=== PATIENT | male | born 1950 | race Caucasian/White ===

== ENCOUNTER → 2018-01-13 09:42 | Outpatient (CLI) | payer MEDICARE | END | disposition home or self-care (01) | LOC: D.RT 09:42 | DX: F17.210 Nicotine dependence, cigarettes, uncomplicated (principal) ==

== ENCOUNTER 2018-02-24 10:54 | Outpatient (CLI) | payer MEDICARE ==
[~2018-02-24] VITALS: Ht 175.3 cm; Wt 77.3 kg
--- NOTE | ~2018-02-24 | HEMODYNAMI ---
PATIENT:LATASHA SÁNCHEZ MEDICAL RECORD: [id number] : 50 LOCATION:D.CAT ADMISSION DATE: 02/24/18 Generatedon:02/24/201813:17 Patient name: LATASHA SÁNCHEZ Patient #: [id number] SSN: : 1950 Date of study: 02/24/2018 Page: Of Hemodynamic Procedure Report Patient Data Patient Demographics Procedure consent was obtained First Name: LATASHA Gender: Male Last Name: PRINCESS : 1950 [facility] Initial: JEANA Age: 67 year(s) Patient #: [id number] Race: Unknown Additional ID: [id number] Contact details [address]: [address] [place] [address] State: [place] City: [place] Zip code: [address] Past Medical History Allergies Allergen Reaction Date Comments Reported Sulfa drugs 02/24/2018 Admission Admission Data Admission Date: 02/24/2018 Admission Time: 10:54 Procedure Procedure Types Cath Procedure Diagnostic Procedure LHC LHC w/Coronaries Sedation Charges Moderate Sedation up to 15 minutes Procedure Description Procedure Date Procedure Date: 02/24/2018 Procedure Start Time: 12:53 Procedure End Time: 13:15 Procedure Staff Name Function Andrés Cloud MD Performing Physician Krystyna Upton RT Monitor Marleni Palacios RN Nurse Sav Garvin RT Scrub Procedure Data Cath Procedure Fluoroscopy Diagnostic fluoroscopy Total fluoroscopy Time: 3.6 time: 3.6 min min Diagnostic fluoroscopy Total fluoroscopy dose: 601 dose: 601 mGy mGy Contrast Material Contrast Material Type Amount (ml) Isovue 300 100 Entry Location Entry Primary Successful Side Size Upsize Upsize Entry Closure Succes sful Closure Location (Fr) 1 (Fr) 2 (Fr) Remarks Device Remarks Femoral Right 5 Fr Exoseal artery Estimated blood loss: 5 ml Diagnostic catheters Device Type Used For End Catheter Placement MULTIPACK JL 4.0 5Fr Left Coronary catheter Angiography MULTIPACK 3DRC 5Fr Right Coronary catheter Angiography MULTIPACK Pigtail 5 Fr LV Angiography catheter DIAGNOSTIC IM 5Fr Internal mammary catheter ([id number]) arteriography Procedure Complications No complications Procedure Medications Medication Administration Route Dosage Oxygen etCO2 Nasal cannula 2 l/min Lidocaine 2% added to field 20 Heparin Flush Bag added to field 2 bags (1000units/500ml NS) Versed I.V. 2 mg Fentanyl I.V. 100 mcg Versed I.V. 2 mg Fentanyl I.V. 100 mcg Versed I.V. 1 mg Fentanyl I.V. 50 mcg Versed I.V. 1 mg Fentanyl I.V. 50 mcg Hemodynamics Rest Heart Rate: 56 (bpm) Pressure Samples Time Site Value (mmHg) Purpose Heart Use Rate(bpm) 13:05 LV 141/8,19 EDP 64 13:05 AO 145/68(98) Pullback 65 13:05 LV 140/1,18 Pullback 65 Gradients Valve Time Site 1 Site 2 Mean SEP/DFP Peak To Heart Use (mmHg) (sec/min) Peak Rate (mmHg) (bpm) Aortic 13:05 LV AO 0 13 0 65 140/1,18 145/68(98) Calculations Valve P-P Mean Valve Index Valve Source Name Gradient Area Flow (cm2) Aortic 0 0 0 0 Snapshots Pre Cath Intra NCS Post Cath Vital Signs Time Heart Resp SPO2 etCO2 NIBP (mmHg) Rhythm Pain Sedation Rate (ipm) (%) (mmHg) Status Level (bpm) 12:46:33 57 13 99 36.1 127/77(97) NSR 0 (11) 10(A) , No pain 12:51:09 55 19 98 21.8 125/72(105) NSR 0 (11) 10(A) , No pain 12:55:42 55 16 95 0 118/81(96) NSR 0 (11) 9(A) , No pain 13:00:55 67 15 99 39.1 151/85(127) NSR 0 (11) 9(A) , No pain 13:05:35 68 24 95 22.6 142/74(104) NSR 0 (11) 9(A) , No pain 13:10:14 68 18 99 36.8 155/81(136) NSR 0 (11) 9(A) , No pain 13:14:55 60 14 98 36.1 145/76(112) NSR 0 (11) 10(A) , No pain Medications Time Medication Route Dose Verified Delivered Reason Notes Eff ectiveness by by 12:40:58 Oxygen etCO2 2 Andrés Buffie used for Nasal l/min ePdro Luis aPlacios RN procedure cannula 12:41:21 Lidocaine 2% added 20ml Andrés Andrés for local to vial Pedro Luis Cloud MD anesthetic field 12:41:27 Heparin Flush added 2 Andrés Andrés used for Bag to bags Pedro Luis Cloud MD procedure (1000units/500ml field NS) 12:49:45 Versed I.V. 2 mg Andrés Buffie for Pedor Luis Palacios RN sedation 12:49:50 Fentanyl I.V. 100 Andrés Buffie for mcg Pedro Luis Palacios RN sedation 12:54:11 Versed I.V. 2 mg Andrés Buffie for Pedro Luis Palacios RN sedation 12:54:14 Fentanyl I.V. 100 Andrés Buffie for mcg Pedro Luis Palacios RN sedation 13:02:12 Versed I.V. 1 mg Andrés Buffie for Pedro Luis Palacios RN sedation 13:02:17 Fentanyl I.V. 50 Andrés Buffie for mcg Pedro Luis Palacios RN sedation 13:08:07 Versed I.V. 1 mg Andrés Buffie for Pedro Luis Palacios RN sedation 13:08:11 Fentanyl I.V. 50 Andrés Buffie for mcg Pedro Luis Palacios RN sedation Procedure Log Time Note 12:19:48 Time tracking: Regular hours (M-F 7:00 - 5:00) 12:19:51 Plan of Care:Hemodynamics will remain stable., Cardiac rhythm will remain stable., Comfort level will be maintained., Respiratory function will remain adequate., Patient/ family verbilizes understanding of procedure., Procedure tolerated without complication., Recovers from procedure without complications.. 12:22:14 Marleni Palacios RN sent for patient. Start room use. 12:33:00 Patient received from Pre/Post Procedure Room to CCL 1 Alert and oriented. Tansferred to table in Supine position. 12:33:01 Warm blankets applied, and marcy hugger turned on for patient comfort. 12:33:02 Correct patient and procedure confirmed by team. 12:33:04 Signed procedure consent form obtained from patient. 12:33:04 ECG and BP/O2 sat monitors applied to patient. 12:33:05 Full Disclosure recording started 12:40:58 Oxygen 2 l/min etCO2 Nasal cannula was administered by Marleni Palacios RN; used for procedure; 12:41:21 Lidocaine 2% 20ml vial added to field was administered by Andrés Cloud MD; for local anesthetic; 12:41:27 Heparin Flush Bag (1000units/500ml NS) 2 bags added to field was administered by Andrés Cloud MD; used for procedure; 12:45:41 Vital chart was started 12:45:45 Rhythm: sinus rhythm 12:46:01 H&P Date Dictated: 01/26/2018 Within 30 days and on chart., H&P Addendum completed by physician on day of procedure. (MUST COMPLETE FOR ALL OUTPATIENTS). 12:46:02 Pre-procedure instructions explained to patient. 12:46:03 Pre-op teaching completed and patient verbalized understanding. 12:46:05 Family in patients room. 12:46:07 Patient NPO since Midnight. 12:46:14 Patient allergic to Sulfa drugs 12:46:16 Is the patient allergic to Iodine/contrast media? No. 12:46:18 Is patient on blood thinner?No 12:46:19 Patient diabetic? No. 12:46:22 Previous problem with sedation/anesthesia? No ? 12:46:23 Snore? Yes 12:46:24 Sleep apnea? No 12:46:26 Deviated septum? No 12:46:27 Opens mouth fully? Yes 12:46:28 Sticks out tongue? Yes 12:46:32 Airway obstruction? Yes Asthma 12:46:35 Dentures? No ? 12:46:38 Pre procedure: right dorsailis pedis pulse 2+ Normal; easily identifiable; not easily obliterated 12:46:40 Modified Sanjiv's test Ulnar > 7 seconds. 12:46:42 Patient pain scale 0/10 ?. 12:46:43 FAILED SANJIV'S 12:47:13 IV patent on arrival in left forearm with 0.9% NaCl at [facility]. 12:47:16 Lab results completed and on chart. 12:47:19 Right groin area was prepped with chlora-prep and draped in sterile fashion 12:47:20 Alarms reviewed by R. N. 12:47:20 Sharps counted by scrub and verified by R.N. 12:47:23 Use device set Femoral Dx 12:47:24 ACIST Syringe (69782) opened to sterile field. 12:47:25 Bag Decanter (2001S) opened to sterile field. 12:47:25 Medline Cath Pack ([id number]) opened to sterile field. 12:47:26 DIAGNOSTIC WIRE .035 260cm J wire (227014) opened to sterile field. 12:47:27 ACIST Hand Control (17549) opened to sterile field. 12:47:27 ACIST Manifold (03237) opened to sterile field. 12:47:28 DIAGNOSTIC Multipack 5Fr catheter set ([id number]) opened to sterile field. 12:47:28 Tegaderm 4 x 4 (1626W) opened to sterile field. 12:47:29 SHEATH Prelude 5Fr 0.035 ([id number]) opened to sterile field. 12:48:44 Final Timeout: patient, procedure, and site verified with staff and physician. All members of the team are in agreement. 12:48:49 Right groin site verified by team. 12:48:51 Physical assessment completed. ASA score P 2 - A patient with mild systemic disease as per Andrés Cloud MD. 12:48:54 Sedation plan: IV Moderate Sedation Medication:Versed, Fentanyl 12:49:28 Baseline sample Acquired. 12:49:45 Versed 2 mg I.V. was administered by Marleni Palacios RN; for sedation; 12:49:50 Fentanyl 100 mcg I.V. was administered by Marleni Palacios RN; for sedation; 12:53:48 Procedure started. 12:53:52 Local anesthetic to right femoral artery with Lidocaine 2% by Andrés Cloud MD.INITIAL ACCESS ONLY 12:54:11 Versed 2 mg I.V. was administered by Marleni Palacios RN; for sedation; 12:54:14 Fentanyl 100 mcg I.V. was administered by Marleni Palacios RN; for sedation; 12:55:28 A 5 Fr sheath was inserted into the Right Femoral artery 12:56:30 A MULTIPACK JL 4.0 5Fr catheter was advanced over the wire and used for Left Coronary Angiography. 13:00:40 Catheter removed. 13:01:03 A MULTIPACK 3DRC 5Fr catheter was advanced over the wire and used for Right Coronary Angiography. 13:02:12 Versed 1 mg I.V. was administered by Marleni Palacios RN; for sedation; 13:02:17 Fentanyl 50 mcg I.V. was administered by Marleni Palacios RN; for sedation; 13:04:01 Catheter removed. 13:04:10 A MULTIPACK Pigtail 5 Fr catheter was advanced over the wire and used for LV Angiography. 13:05:16 LV gram done using RAMOS 13:05:20 Injector settings: Ml/sec: 10, Volume: 20, 13:05:21 LV hemodynamics recorded. 13:05:28 EF : 55 % 13:05:52 Catheter removed. 13:07:29 A DIAGNOSTIC IM 5Fr catheter ([id number]) was advanced over the wire and used for Internal mammary arteriography. 13:08:07 Versed 1 mg I.V. was administered by Marleni Palacios RN; for sedation; 13:08:11 Fentanyl 50 mcg I.V. was administered by Marleni Palacios RN; for sedation; 13:09:44 Catheter removed. 13:11:58 Sheath removed intact; hemostasis achieved with Exoseal to the Right Femoral artery. 13:12:03 Procedure ended.(Physican Out) 13:12:36 Fluoroscopy time 03.60 minutes. 13:12:40 Fluoroscopy dose: 601 mGy 13:12:40 Flurop Dose total: 601 13:12:43 Contrast amount:Isovue 300 100ml. 13:12:45 Sharps counted by scrub and verified by R.N. 13:12:54 Insertion/operative site no bleeding no hematoma. 13:12:57 Post-op/insertion site Right Femoral artery dressed using a 4 x 4 and Tegaderm. 13:13:00 Post right femoral artery:stable, clean and dry 13:13:07 Post Procedure Pulses reassessed and unchanged 13:13:10 Post-procedure physical assessment completed. ASA score P 2 - A patient with mild systemic disease as per Andrés Cloud MD. 13:13:13 Post procedure rhythm: unchanged. 13:13:16 Estimated blood loss: 5 ml 13:13:18 Post procedure instruction explained to patient.Patient verbalizes understanding. 13:13:18 Patient needs reinforcement of post procedure teaching. 13:13:40 Procedure type changed to Cath procedure, Diagnostic procedure, LHC, LHC w/Coronaries, Sedation Charges, Moderate Sedation up to 15 minutes 13:13:45 Procedure Complication : No complications 13:13:47 See physician's report for complete and final results. 13:14:10 EXOSEAL 5Fr (EX500) opened to sterile field. 13:14:25 Procedure and supply charges have been captured, reviewed, submitted and are correct. 13:15:03 Vital chart was stopped 13:15:05 Report given to Pre/Post Procedure Room. 13:15:07 Patient transfered to Pre/Post Procedure Room with Stretcher. 13:15:15 Procedure ended. 13:15:15 Full Disclosure recording stopped 13:15:18 End room use (Document Last) Device Usage Item Name Manufacture Quantity Catalog Number Hospital Part Current M inimal Lot# / Charge Number Stock Stock Serial# Code ACIST Syringe Acist 1 87072 904077 930371 720859 2 0 (49112) [employer] Bag Decanter Microtek 1 691052 65852 672498 5 () Medical Inc. Medline Cath Cardinal 1 [id number] 984763 83396 751245 5 Pack Health ([id number]) DIAGNOSTIC WIRE St Luis 1 506417 465653 956744 577949 3 0 .035 260cm J wire (514817) ACIST Hand Acist 1 23184 948392 657346 060367 5 Control (25608) [employer] Inc ACIST Manifold Acist 1 18600 372385 509152 275834 5 (23303) [employer] Inc DIAGNOSTIC Cardinal 1 XK1933 378045 60453 028802 3 0 Multipack 5Fr Health catheter set (OJ4614) Tegaderm 4 x 4 3M 1 1626W 215626 820251 520496 5 (1626W) SHEATH Prelude Merit 1 [id number]-[id number]-75-035 461952 532587 819116 5 5Fr 0.035 Medical (JIP-2H-29-035) MULTIPACK JL Cardinal 1 087257 5 4.0 5Fr Health catheter MULTIPACK 3DRC Cardinal 1 964059 5 5Fr catheter Health MULTIPACK Cardinal 1 065096 5 Pigtail 5 Fr Health catheter DIAGNOSTIC IM Cardinal 1 [id number] 950626 659473 690883 5 5Fr catheter Health (854062Y) EXOSEAL 5Fr Cardinal 1 EX500 323762 316068 966228 1 0 (EX500) Health Signature Audit [place] Stage Time Signature Unsigned Intra-Procedure 02/24/2018 Krystyna 1:17:09 PM Counts RT(R) Signatures Monitor : Krystyna Signature : Counts RT Date : Time : [facility] [address] [place] [address]
[2018-02-24] MEDS ORDERED: PRINZIDE 20/12.1 TA1 PO (11:21)
[2018-02-24] MEDS ORDERED: CALAN120 MG (11:21)
[2018-02-24 11:31] VITALS: BP 134/77; Ht 175.3 cm; Wt 77.3 kg
[2018-02-24 11:46] LABS: BASOPHILS 0.4 % (0-2); EOSINOPHILS 2.6 % (0-7); HEMATOCRIT 44.7 % (42.0-54.0); HEMOGLOBIN 16.3 g/dL (13.5-17.5); IMMATURE GRANULOCYTES 0.3 % (0-5); LYMPHOCYTES 30.4 % (15-50); MCH 35.6 pg (26.0-34.0); MCHC 36.5 g/dL (31.0-37.0); MCV 97.6 fL (80.0-100.0); MEAN PLATELET VOLUME 9.8 fL (7.4-10.4); MONOCYTES 13.8 % (2-11); NEUTROPHILS 52.5 % (40-80); PLATELET COUNT 180 10x3/uL (130-400); RBC 4.58 10x6/uL (4.20-6.10); WBC 7.6 10x3/uL (4.8-10.8)
[2018-02-24 11:54] LABS: CALC OSMOLALITY 277 mosm/kg (275-300); CALCIUM 9.3 mg/dL (8.5-10.1); CARBON DIOXIDE 25.5 mmol/L (21.0-32.0); CHLORIDE - SERUM 102 mmol/L (98-107); CREATININE - SERUM 0.9 mg/dL (0.6-1.3); GLUCOSE 109 mg/dL (74-106); POTASSIUM - SERUM 4.2 mmol/L (3.5-5.1); SODIUM 138 mmol/L (136-145); UREA NITROGEN 15 mg/dL (7-18); eGFR NON AFRICAN AMERICAN 89 mL/min (90-120)
== END 2018-02-24 16:00 | disposition home or self-care (01) ==
LOC: D.CATH 10:54
PROVIDERS: Internal Medicine Cardiovascular Disease
DX: I25.110 Atherosclerotic heart disease of native coronary artery with unstable angina pectoris (principal); R94.39 Abnormal result of other cardiovascular function study

== ENCOUNTER 2018-05-31 11:00 | Inpatient (IN) | payer MEDICARE ==
[~2018-05-31] VITALS: Ht 175.3 cm; Wt 76.8 kg
[~2018-05-31 11:00] MED LIST: CALAN120 MG; PRINZIDE 20/12.1 TA1 PO
--- NOTE | 2018-05-31 12:57 | HP ---
PATIENT: LATASHA SÁNCHEZ MEDICAL RECORD: [id number] ACCOUNT: [id number] LOCATION:[facility] : 50 ADMISSION DATE: 06/03/18 PCP: SHREYAS HERRERA MD HISTORY AND PHYSICAL EXAMINATION LATASHA Malik (67yo, M) ID# [id number]. Date/Time05/05/2018 10:[id number] Dept.NP_[facility] ClinicProviderMONTANA MISTRY MDInsuranceMed Primary: [place] ([place]) Insurance # : [id number] PCP : SHREYAS HERRERA Referring Provider Name : SHREYAS HERRERA Employer Name : UNKNOWN Prescription: Watchwith - This member could not be found in the payer's files. Please verify coverage and all member demographic information. Chief Complaint Followup: Coronary arteriosclerosis cad, s/p dental work and stop ETOH? Patient's Care Team Primary Care Provider (): SHREYAS HERRERA: [address], [place] [address], , Referring Provider (): SHREYAS HERRERA: [address], [place] [address], , Patient's Pharmacies [place] [address] ([facility]): [address] [place] [phone], , Vitals BP:164/96 sitting L arm 05/05/2018 10:18 am 172/88 sitting R arm 05/05/2018 10:19 amBP Cuff Size:adult 05/05/2018 10:18 am adult 05/05/2018 10:19 amHR:64,reg 05/05/2018 10:20 amHt:5 ft 9 in 05/05/2018 10:11 amWt:164.8 lbs 05/05/2018 10:16 amNotes:no chest pain, arm pain, tightness. has had teeth removed, gums healed. 05/05/2018 10:21 amBMI:24.3 05/05/2018 10:16 amAllergies Reviewed Allergies SULFA (SULFONAMIDE ANTIBIOTICS)Medications Reviewed Medications diazePAM 5 mg tablet Take 1 tablet(s) as needed by oral route.[facility] 25 mg tablet Take 1 tablet(s) every day by oral route.02/26/18 [facility] 100 mg tablet Take 1 tablet(s) twice a day by oral route.02/26/18 [facility] 120 mg tablet Take 1 tablet(s) 3 times a day by oral route.02/26/18 [facility] Problems Coronary arteriosclerosis - Onset: 02/26/2018 Family History Reviewed Family History Father- Coronary arteriosclerosis ( age: 55)Mother- Malignant neoplastic diseaseSocial History Reviewed Social History Cardiology Family history of heart disease?: Y Smoking Status: Former smoker (Notes: quit december 2017) HISTORY AND PHYSICAL [id number] LATASHA SÁNCHEZ Smoker (1 PPD) High Cholesterol: Y High blood pressure: Y Exercise level: None Diabetes: N Alcohol intake: Heavy Occupation: retired Tobacco-years of use: 45 Surgical History Reviewed Surgical History Other - hernia repair Past Medical History Reviewed Past Medical History Alcoholism: Y Chest Pain: Y Circulation Problems: Y Coronary Artery Disease: Y Drug Abuse: Y - pot Heart Disease: Y Hyperlipidemia: Y Hypertension: Y Shortness of Breath: Y Documents for Discussion N/A Screening None recorded. HPI Coronary Artery Disease F/U Reported by patient. Severity: no chest discomfort with daily activities Context: non-smoker Associated Symptoms: no chest pain; no neck pain; no left arm pain; no dyspnea with exertion; no sweating; no nausea; no stress multivessel coronary disease, asymptomatic Office follow-up following dental extractions Continues to drink about 6 beers a day. Denies angina, as dyspnea with exertion. Does have multivessel disease ROS Additionally reports: no changes from previous review of systems ROS as noted in the HPI Physical Exam Patient is a 67-year-old male. Constitutional: General Appearance well nourished and developed and healthy-appearing. Level of Distress NAD. Ambulation ambulating normally. Cardiovascular: Apical Impulse not displaced or no thrill. Heart Auscultation no murmurs, rubs, or gallops and RRR. Arterial Pulses 2+ bilateral radial. Edema no edema or varicosities. Lungs: Repiratory Effort no dyspnea. Percussion no hyperresonance or dullness or flatness. Auscultation no wheezing, rhonchi, or rales / crackles and breathing sounds normal and good air movement. HISTORY AND PHYSICAL [id number] LATASHA SÁNCHEZ Abdomen: Bowl Sounds normal. Inspection and Palpation no tenderness, guarding, or masses and soft and non-distended. Liver non-tender and no hepatomegaly. Spleen non-tender and no splenomegaly. Ears, Nose, Throat: Hearing grossly normal hearing. Oropharynx: moist mucous membranes. Musculoskeletal System: Gait And Stance normal gait and stance. Digits and Nails normal nails and no cyanosis. Joints, Bones, and Muscles normal strength and movement of all extremities. Neurologic: Cranial Nerves grossly intact. Sensation grossly intact. Lymph Nodes: Lymph Nodes no cervical LAD or supraclavicular LAD. Eyes: Lids and Conjunctivae no discharge or pallor and non-injected. Pupils PERRLA. EOM EOMI. Sclerae non-icteric. Neck: Neck no masses, enlarged lymph nodes, or carotid bruits and supple and trachea midline. Thyroid no enlargement or nodules and non-tender. Skin: Inspection and Palpation no rash, lesions, ulcers, or jaundice. Assessment / Plan 1. Coronary arteriosclerosis I25.10: Atherosclerotic heart disease of [place] coronary artery without angina pectoris Patient Instructions discontinue alcohol for one week prior to surgery Discussion Notes we discussed the rationale for surgery with asymptomatic multivessel coronary artery disease. We discussed the alternatives, recovery, and benefits. Consent given. Plan after holidays Warning signs for immediate medical attention discussed Return to Office None recorded. MONTANA MISTRY MD at 1257 CC: [phone] DICTATION DATE: 05/05/18 1010 [employer] IN[employer]CTOR: GIOVANNA 05/31/18 1141 [address] [place] [id number] [place] [id number]
[2018-05-31 13:25] LABS: BASOPHILS 0.4 % (0-2); EOSINOPHILS 2.2 % (0-7); HEMOGLOBIN 15.4 g/dL (13.5-17.5); IMMATURE GRANULOCYTES 0.2 % (0-5); LYMPHOCYTES 41.4 % (15-50); MCH 34.9 pg (26.0-34.0); MCV 99.8 fL (80.0-100.0); MEAN PLATELET VOLUME 9.4 fL (7.4-10.4); MONOCYTES 13.9 % (2-11); NEUTROPHILS 41.9 % (40-80); PLATELET COUNT 163 10x3/uL (130-400); RBC 4.41 10x6/uL (4.20-6.10); RDW 12.4 % (11.5-14.5); WBC 5.4 10x3/uL (4.8-10.8)
[2018-05-31 13:27] LABS: APPEARANCE CLEAR (CLEAR); BILIRUBIN NEGATIVE (NEGATIVE); COLOR YELLOW (YELLOW); GLUCOSE NEGATIVE (NEGATIVE); KETONE NEGATIVE (NEGATIVE); NITRITE NEGATIVE (NEGATIVE); PROTEIN NEGATIVE (NEGATIVE); SPECIFIC GRAVITY 1.005 (1.005-1.020); UROBILINOGEN NORMAL (NORMAL)
[2018-05-31 13:38] LABS: APTT 32.1 SECONDS (22.8-39.4); INR 0.99 (0.85-1.17); PROTIME 12.6 SECONDS (11.6-15.0)
[2018-05-31 13:48] LABS: ALBUMIN 3.7 g/dL (3.4-5.0); ALKALINE PHOSPHATASE 86 U/L (46-116); ALT (SGPT) 57 U/L (10-68); BILIRUBIN - TOTAL 0.34 mg/dL (0.2-1.3); CALC OSMOLALITY 273 mosm/kg (275-300); CHLORIDE - SERUM 98 mmol/L (98-107); CHOLESTEROL, TOTAL 185 mg/dL (0-200); CREATININE - SERUM 0.8 mg/dL (0.6-1.3); GLUCOSE 93 mg/dL (74-106); PHOSPHOROUS 3.5 mg/dL (2.5-4.9); POTASSIUM - SERUM 3.9 mmol/L (3.5-5.1); PROTEIN - SERUM 7.1 g/dL (6.4-8.2); SODIUM 137 mmol/L (136-145); T4 THYROXIN - FREE 0.86 ng/dL (0.76-1.46); THYROID STIMULATING HORMONE 3.19 uIU/mL (0.36-3.74); UREA NITROGEN 12 mg/dL (7-18); URIC ACID 5.7 mg/dL (2.6-7.2); eGFR NON AFRICAN AMERICAN > 90 mL/min (90-120)
[2018-05-31] MEDS ORDERED: BAYER CHEWABLE81 MG PO (14:59)
[2018-05-31] MEDS ORDERED: IBUPROFEN400 MG PO (14:59)
[2018-05-31] MEDS ORDERED: VALIUM5 MG PO (15:01)
[2018-05-31] MEDS ORDERED: BACLOFEN10 MG PO (15:02)
[2018-05-31] MEDS ORDERED: METOPROLOL TART50 MG PO (15:03)
[2018-05-31] MEDS ORDERED: KENALOG IN ORABA5 GM TOPICAL (15:06)
[2018-06-03] VITALS (43 sets, daily range): BP systolic 92–164; BP diastolic 47–87; BMI 24.2; BMI 24.8
--- NOTE | 2018-06-03 14:20 | NUR ---
PT ARRIVED IN THE UNIT. PT HOOKED TO ICU MONITORS. PT SEDATED AND ON THE VENTILATOR. 8 ETT 23 MIDLINE LIP. SEE RT NOTES FOR VENT SETTINGS. RIGHT IJ CVL NOTED. DRESSING C/D/I. SEE IV FLOW SHEET FOR DETAILS. SEE ASSESSMENT FLOW SHEET FOR DETAILS. MIDLINE CHEST INCISION WITH A DRESSING C/D/I. SUBSTERNAL DRESSING C/D/I WITH A LEFT ANNITA DRAIN COMPRESSED WITH BLOODY DRAINGE. CT LABLED L AND R NOTED 20 TO SUCTION WITH NO AIR LEAK NOTED. BLOODY DRAINGE NOTED. DRESSING C/D/I. TPM WIRES NOTED. RIGHT A LINE NOTED WITH A GOOD WAVE FORM. WRIST PROTECTOR ON. CAP REFILL <3 SECONDS. RIGHT LEG HARVEST SITE NOTED. KOBAN WRAPPED FROM THIGH TO ANKLE. 2 TERRENCE DRAINS NOTED MID LEG COMPRESSED WITH BLOODY DRAINGE. DORALIS PEDIS PULSES DOPPLERABLE. FC NOTED WITH CLEAR, YELLOW URINE. PT NORMAL SINUS RHYTHM. VSS AT THIS TIME. CALL LIGHT IN REACH. [facility] PC.
--- NOTE | 2018-06-03 14:40 | NUR ---
DR MISTRY AT THE PTS BEDSIDE. PT BECOMING SLIGHT HTN. NITRO TITRATED PER ORDERS. DR MISTRY INSTRUCED TO GIVE IV MORPHINE. IT WAS GIVEN.
--- NOTE | 2018-06-03 14:45 | NUR ---
ASKED DR MISTRY IF HE WANTED THE PT TO BE ON AMIDORONE AND HE STATED NO. SEE ORDERS.
--- NOTE | 2018-06-03 15:00 | NUR ---
ABG OBTAINED PER RT. RT TURNED FIO2 TO 40%. PT STILL EXTREAMLY DROWSEY. PT DOES HOWEVER AROUSE TO VOICE. VSS AT THIS TIME. PT REMAINS NSR.
--- NOTE | 2018-06-03 15:54 | NUR ---
PT TEMP 96.7. ASKED THE PT IF HE WAS COLD AND HE SHOOK HIS HEAD YES. COVERED THE PT WITH BLANKES.
--- NOTE | 2018-06-03 15:55 | NUR ---
RT CHANGED VENT SETTINGS TO SIMV RATE OF 4. PT TOLEATING WELL.
--- NOTE | 2018-06-03 16:08 | NUR ---
PT 96.4 FC TEMP. BEAR HUGGER TURNED ON AND PLACED ON THE PT.
--- NOTE | 2018-06-03 16:20 | NUR ---
PT AWAKE AND FOLLOWING COMMANDS. RT CHANGED VENT TO CPAP MODE. PT TOLERATING WELL. VSS. WILL CONT PC.
--- NOTE | 2018-06-03 17:10 | NUR ---
ABG OBTAINED. RT DID NIFF AND VITAL COPACITY. -[address] MISTRY CALLED AND UPDATED ON THE PTS CONDITION. OK TO EXTUBATE AND AFTER PT IS EXTUBATED, GIVE 2.5 OF IV LOPRESSOR.
--- NOTE | 2018-06-03 17:15 | NUR ---
RT EXUBATED PER ORDERS. PT TOLERATED WELL. O2 PLACED ON THE PT AT 4L VIA NC. VSS AT THIS TIME. REMAINS IN NSR AT 90 BPM. WILL CONT POC.
--- NOTE | 2018-06-03 17:40 | NUR ---
PRN MORPHINE GIVEN. PT INSTRUCTED TO BREATH AND COUGH FREQUENTLY. PT TOLEATED WELL.
--- NOTE | 2018-06-03 17:48 | NUR ---
DR MISTRY AT THE PTS BEDSIDE.
--- NOTE | 2018-06-03 18:34 | NUR ---
INSTRUCTED THE PT TO USE HIS IS 10X'S/H. PT DEMOSTRATED THE CORRECT WAY TO USE USE IS. PULLED A LITTLE UNDER 1000.
--- NOTE | 2018-06-03 19:15 | NUR ---
REPORT REC'D AND CARE ASSUMED, REC'D PT SITTING UP IN BED, O2 @ 4LITERS VIA NC, AWAKE, ALERT, AND ORIENTED X 4, RIJ SWAN CAPPED, DRSG CDI TO SIDE PORTS, MANNIFOLD WITH PLASMALYTE @ 100CC/HR, NITROGLYCERIN @ 10CC/HR OR 33.33 MCG/MIN, AND INSULIN ON HOLD, 3 PRONG EXTENSION SET WITH BURETROL @ 5CC/HR AND ZINACEF @ 11.4CC/HR, MIDSTERNAL DRSG CDI, SUBSTERNAL DRSG CDI, MEDIASTINAL CT'S X 2 TO 20CM H2O SUCTION, LEFT SUBSTERNAL ANNITA DRAIN COMPRESSED WITH SANGUINOUS DRAINAGE NOTED, EXTERNAL P/M WIRES SECURED UNDER SUBSTERNAL DRSG, RIGHT RADIAL ENEDELIA WITH FLEXION BOARD IN USE, ENEDELIA LEVELED AND ZEROED WITH RETURN OF APPROPRIATE WAVEFORM, CRITICORE MAURICIO PATENT DRAINING CLEAR YELLOW URINE, RIGHT LEG HARVEST SITES, COBAN DRSG CDI, TERRENCE DRAINS X 2 TO RIGHT UPPER LEG COMPRESSED WITH SANGUINOUS DRAINAGE, PT COMPLAINS OF PAIN TO INCISION, RATING "6" ON 0-10 PAIN SCALE, SCD TO LEFT LEG, PPP, SR UP X 3, VISIBLE TO NURSES STATION.
--- NOTE | 2018-06-03 19:40 | NUR ---
ORAL RINSE WITH PERIDEX PROVIDED
--- NOTE | 2018-06-03 20:05 | NUR ---
SIGNIFICANT OTHER AT BS, UPDATE PROVIDED AND QUESTIONS ANSWERED, PERCOCET 5/325 1 TAB, GIVEN PO FOR CONTINUED COMPLAINTS OF PAIN, TITRATING NITROGLYCERIN FOR EFFECT.
--- NOTE | 2018-06-03 21:05 | NUR ---
EVENING MEDS GIVEN, PT REFUSED STOOL SOFTENERS, EXPLAINED TO PT WITH THE PAIN MEDICATION THEY WERE NECESSARY DUE TO DECREASED STOMACH MOTILITY, VERBALIZES UNDERSTANDING, STATES " I DO NOT WANT THEM, I DON'T NEED THEM", ATTEMPTED TO EXPLAIN AGAIN THE REASON FOR THEIR NEED, STATES " I WANT TO TRY AND SLEEP", STOOL SOFTENERS HELD AT THIS TIME.
--- NOTE | 2018-06-03 22:01 | NUR ---
PT COMPLAINS OF INCREASED INCISIONAL PAIN, WHEN ASKED ABOUT PERCOCET, STATES " IT HELPED A LITTLE BUT I AM STILL HURTING", 2MG MORPHINE GIVEN SLOW IVP FOR PAIN, BP STABLE, WEANING NITRO TOLERATED.
--- NOTE | 2018-06-03 23:25 | NUR ---
PT AWAKE, REPOSITIONED UP IN BED FOR COMFORT, REASSESSMENT COMPLETED, PT COMPLAINS OF PAIN RATING "8-9" ON 0-10 PAIN SCALE, STATES "THE LAST PAIN MED YOU GAVE ME WORKED BETTER I THINK", 2MG MORPHINE GIVEN, BP 148/75, O2 WEANED TO 2LITERS VIA NC, O2 SAT 99%, WILL MONITOR CLOSELY FOR CHANGES.
[2018-06-04] VITALS (58 sets, daily range): BP systolic 83–148; BP diastolic 54–85; Ht 175.3 cm; Wt 76.8 kg
--- NOTE | 2018-06-04 01:15 | NUR ---
PT AWAKE, ICE WATER PROVIDED, PT BELCHING AT THIS TIME, DENIES NAUSEA, HAVING DIFFICULTY GETTING COMFORTABLE, ASSISTED TO REPOSITION FOR COMFORT, BP TRENDING UPWARD, WILL MONITOR CLOSELY FOR CHANGES. .
--- NOTE | 2018-06-04 01:51 | NUR ---
PT COMPLAINS OF CHEST DISCOMFORT WITH COUGHING, PERCOCET 10MG GIVEN PO FOR PAIN, PT DENIES NAUSEA OR FURTHER NEEDS. TITRATING NITROGLYCERIN FOR EFFECT, VISIBLE TO NURSES STATION.
--- NOTE | 2018-06-04 03:30 | NUR ---
REASSESSSMENT COMPLETED, NO CHANGES FROM PREVIOUS ASSESSMENT, PT DOZING AT INTERVALS, DRSGS REMAIN CDI, RIGHT RADIAL ENEDELIA POSITIONAL AT TIMES, CM-SR TO ST, ANNITA DRAIN AND TERRENCE'S EMPTIED USING STERILE TECHNIQUE, CRITICORE MAURICIO PATENT DRAINING YELLOW URINE, PT MAEE, ICE WATER PROVIDED ON REQUEST, WILL CONT TO MONITOR CLOSELY FOR CHANGES.
--- NOTE | 2018-06-04 04:35 | NUR ---
PT COMPLAINS OF INCISIONAL DISCOMFORT, RATING "8" ON 0-10 PAIN SCALE, 2MG MORPHINE GIVEN SLOW IVP, BP ELEVATED, CONTINUING TO TITRATE NITROGLYCERIN FOR EFFECT.
--- NOTE | 2018-06-04 05:15 | NUR ---
PT DANGLED AT BS, TOLERATED WELL, NITROGLYCERIN TITRATED FOR EFFECT, DENIES NEEDS, ASSISTED TO REPOSITION FOR COMFORT AFTER 1O MINUTES.
--- NOTE | 2018-06-04 06:10 | NUR ---
AM LAB DRAWN FROM CV[facility] AND SENT TO LAB
[2018-06-04 06:27] LABS: HEMATOCRIT 33.4 % (42.0-54.0); HEMOGLOBIN 11.2 g/dL (13.5-17.5); MCH 34.1 pg (26.0-34.0); MCHC 33.5 g/dL (31.0-37.0); MCV 101.8 fL (80.0-100.0); MEAN PLATELET VOLUME 9.7 fL (7.4-10.4); RBC 3.28 10x6/uL (4.20-6.10); WBC 8.2 10x3/uL (4.8-10.8)
--- NOTE | 2018-06-04 06:30 | NUR ---
PT ASSISTED X 2 UP TO CHAIR AT BS, RT AT BS FOR BREATHING TX, PT TOLERATED WELL, BP ELEVATED PER ENEDELIA BUT WITHIN NORMAL RANGE PER BP CUFF, WARM BLANKET PROVIDED, LINENS CHANGED ON BED, CALL LIGHT AND BEDSIDE TABLE WITHIN REACH.
[2018-06-04 07:20] LABS: ALBUMIN 2.7 g/dL (3.4-5.0); ALKALINE PHOSPHATASE 40 U/L (46-116); ALT (SGPT) 31 U/L (10-68); BILIRUBIN - TOTAL 0.25 mg/dL (0.2-1.3); CALC OSMOLALITY 283 mosm/kg (275-300); CALCIUM 7.3 mg/dL (8.5-10.1); CARBON DIOXIDE 25.8 mmol/L (21.0-32.0); CHLORIDE - SERUM 106 mmol/L (98-107); CREATININE - SERUM 0.9 mg/dL (0.6-1.3); POTASSIUM - SERUM 4.2 mmol/L (3.5-5.1); PROTEIN - SERUM 5.1 g/dL (6.4-8.2); SODIUM 141 mmol/L (136-145); UREA NITROGEN 12 mg/dL (7-18); eGFR NON AFRICAN AMERICAN 89 mL/min (90-120)
[2018-06-04 07:29] LABS: GLUCOSE 148 mg/dL (74-106)
--- NOTE | 2018-06-04 10:58 | NUR ---
CALLED PHARMACY FOR AZRA
--- NOTE | 2018-06-04 12:17 | NUR ---
0700 PT RECIEVED UP IN CHAIR ALERT AND ORIENTED O2 2L NC R IJ CVL DRESSING CDI WITH NITRO, PLASMALYTE AND BURETROL INFUSING, MIDSTERNAL AND SUBSTERNAL DRESSING CDI WITH SUBSTERNAL ANNITA DRAIN, CTX2, TPM WIRES CDI, R LEG HARVEST SITES CDI WITH JPX2 COMPRESSED, MAURICIO DRAINING CLEAR YELLOW URINE 0800 DR MISTRY IN U NIT WITH ORDERS TO DC MAURICIO, ART, LEG JPX2 0900 DCD MAURICIO, ART, JPX2 TO LEGS PER PROTOCOL, TOLERATED WELL 1100 TOLERATING CLAUDETTE RLIQUID LUNCH TRAY WITHOUT DIFFICULTY
--- NOTE | 2018-06-04 15:33 | NUR ---
1430 AFTER ASSISTING BACK TO BED AND PRN MORPHINE, DR MISTRY IN ROOM AND REMOVED CTX2, PT TOLERATED WELL
--- NOTE | 2018-06-04 16:26 | NUR ---
ASSISTED BACK TO CHAIR FOR DINNER
--- NOTE | 2018-06-04 17:00 | NUR ---
PT STATES HE DOES NOT DRINK BUD LIGHT, ONLY BUDWEISER AND NATURAL ICE, DR PAREKH/DAIN NURSE ANEL NOTIFIED AND THAT PT CAN BRING, OKAYED WITH ANEL.
--- NOTE | 2018-06-04 17:21 | NUR ---
BROUGHT 15 CANS OF NATURAL ICE BEER, 2 GIVEN TO PT, PT LABEL APPLIED TO BOX AND PLACED IN FRIDGE
--- NOTE | 2018-06-04 17:49 | NUR ---
PT ABLE TO VOID 50ML IN URINAL, DR PAREKH NOTIFIED THIS IS THE ONLY VOID SINCE MAURICIO REMOVAL
--- NOTE | 2018-06-04 20:06 | NUR ---
REPORT RECEIVED AND ASSESSMENT COMPLETED. SEE FLOWSHEET FOR FULL DETAILS. VSS. WILL CONTINUE TO MONITOR
[2018-06-05] VITALS (24 sets, daily range): BP systolic 105–154; BP diastolic 64–92
--- NOTE | 2018-06-05 01:29 | NUR ---
PRN PAIN MEDICATION PROVIDED PER PT REQUEST. VSS. REMAINS TACHYCARDIC. WILL MONITOR
[2018-06-05 06:23] LABS: HEMOGLOBIN 11.1 g/dL (13.5-17.5); MCH 34.3 pg (26.0-34.0); MCHC 33.6 g/dL (31.0-37.0); MCV 101.9 fL (80.0-100.0); MEAN PLATELET VOLUME 10.3 fL (7.4-10.4); RBC 3.24 10x6/uL (4.20-6.10); RDW 12.8 % (11.5-14.5); WBC 8.4 10x3/uL (4.8-10.8)
[2018-06-05 06:48] LABS: ALBUMIN 2.7 g/dL (3.4-5.0); ALKALINE PHOSPHATASE 49 U/L (46-116); ALT (SGPT) 31 U/L (10-68); BILIRUBIN - TOTAL 0.43 mg/dL (0.2-1.3); CALC OSMOLALITY 274 mosm/kg (275-300); CALCIUM 8.2 mg/dL (8.5-10.1); CARBON DIOXIDE 28.3 mmol/L (21.0-32.0); CHLORIDE - SERUM 102 mmol/L (98-107); CREATININE - SERUM 0.6 mg/dL (0.6-1.3); GLUCOSE 115 mg/dL (74-106); POTASSIUM - SERUM 3.8 mmol/L (3.5-5.1); PROTEIN - SERUM 5.7 g/dL (6.4-8.2); SODIUM 138 mmol/L (136-145); UREA NITROGEN 8 mg/dL (7-18); eGFR NON AFRICAN AMERICAN > 90 mL/min (90-120)
--- NOTE | 2018-06-05 07:15 | NUR ---
AWAKE AND ALERT UP IN CHAIR AT BEDSIDE. WET COUGH. ENCOURAGE TO COUGH AND DEEP BREATH. SPLINTING WITH HEART PILLOW. IS TO 750 INSTURCTED TO USE DURING COMMERICALS ON TV. VERBALIZED UNDERSTANDING. VOIDED 125 ML CLEAR YELLOW URINE. CHEST AND RIGHT LEG DRESSING DRY AND INTACT. ANNITA DRAIN DRAINED OF 35 ML SERSANG FLUID. BULB COMPRESSED. PULSE OX 88-91% OXYGEN APPLIED AT 1 LITER NC UP TO 96%.STATES HE IS HURTING CONSTANTLY FROM ANNITA DRAIN. INSTRUCTED WHEN NEXT PAIN PILL COULD BE GIVEN.
--- NOTE | 2018-06-05 07:45 | NUR ---
ORAL CARE DONE WITH PERIDEX
--- NOTE | 2018-06-05 08:02 | NUR ---
BREAKFAST SERVED WITH 2 BEERS
--- NOTE | 2018-06-05 09:50 | NUR ---
AMBULATED PER PHYSICAL THERAPY IN [place] TOLERATED WELL. NO SHORTNESS OF BREATH OR DISTRESS.
--- NOTE | 2018-06-05 10:30 | NUR ---
FAMILY HERE UPDATE GIVEN. BATH GIVEN TOLERATED WELL. NO DISTRESS
--- NOTE | 2018-06-05 12:00 | NUR ---
LUNCH SERVED. NO DISTRESS
--- NOTE | 2018-06-05 12:09 | NUR ---
DR. PAREKH HERE
--- NOTE | 2018-06-05 13:14 | NUR ---
AMBULATED IN [place] PER PHYSICAL THERAPY. TOLERATED FAIR. SOME LEFT SIDE PAIN. HEART 117 WHILE AMBULATING.
--- NOTE | 2018-06-05 14:30 | NUR ---
NAPPING UP IN CHAIR.
--- NOTE | 2018-06-05 15:28 | OP ---
PATIENT NAME: LATASHA SÁNCHEZ MEDICAL RECORD: [id number] :50 LOCATION:[facility] D.CV06 ADMISSION DATE:06/03/18 SURGEON: CLAUDIA PAREKH MD DATE OF OPERATION: 06/03/2018 Journeyman Press Operator Note DYNAMITE SHOOTER: Claudia Parekh MD SURGEON: Marcos Nicole MD ANESTHESIA: General by Dr. Tran. OPERATION PERFORMED: Coronary artery bypass. I harvested the right greater saphenous vein from the mid-calf to right groin and prepared the vessel for grafting. The vein was harvested mediastinal through the small transverse bridging incisions due to the fact that endoscopic vein harvest could not be performed. The vein tributaries were ligated with 4-0 silk suture. The vein was handed off to the back table for grafting. Two drains were placed in the right leg and placed to suction. The wounds were closed in layers utilizing 2-0 Vicryl and skin nghia. The case was turned over to Dr. Nicole for completion of the procedure. TRANSINT:[id number] Voice Confirmation ID: [id number] DOCUMENT ID: [id number] CLAUDIA PAREKH MD at 1528 CC: [id number] DICTATION DATE: 06/03/18 1555 PROFESSOR OF FORESTRY: 06/03/18 2216 ADM IN [place] [id number] [place] [id number]
--- NOTE | 2018-06-05 15:30 | NUR ---
ANNITA EMPTIED 90 CC SERSANG FLUID. VOIDING PALE YELLOW URINE. DRESSINGS DRY AND INTACT. MONITOR SR. GOOD COUGH WITH ENCOURAGEMENT.
--- NOTE | 2018-06-05 16:40 | NUR ---
SIMBA DING SERVED. FAMILY AT BEDSIDE
--- NOTE | 2018-06-05 17:11 | NUR ---
ATE WELL AT DINNER. NO DISTRESS. WATCHING TV
--- NOTE | 2018-06-05 18:26 | NUR ---
AMBULATED BACK TO BED. PAIN PILL GIVEN CALL LIGHT WITHIN HANDS REACH. NO DISTRESS TOLERATED WELL. DRESSINGS DRY AND INTACT. MONITOR ST. PULSE OX WILL DROP TO 88% WHEN OXYGEN REMOVED. ON 1 LITER NC TO KEEP HIM ABOVE 90%.
--- NOTE | 2018-06-05 19:00 | NUR ---
REPORT RECEIVED AND ASSESSMENT COMPLETED. SEE FLOWSHEET FOR FULL DETAILS. VSS. WILL MONITOR THROUGHOUT SHIFT.
[2018-06-06] VITALS (24 sets, daily range): BP systolic 113–156; BP diastolic 62–93
[2018-06-06 05:58] LABS: HEMATOCRIT 30.6 % (42.0-54.0); HEMOGLOBIN 10.3 g/dL (13.5-17.5); MCH 33.8 pg (26.0-34.0); MCHC 33.7 g/dL (31.0-37.0); MCV 100.3 fL (80.0-100.0); MEAN PLATELET VOLUME 9.4 fL (7.4-10.4); RBC 3.05 10x6/uL (4.20-6.10); RDW 12.4 % (11.5-14.5); WBC 6.9 10x3/uL (4.8-10.8)
[2018-06-06 06:08] LABS: ALBUMIN 2.5 g/dL (3.4-5.0); ALKALINE PHOSPHATASE 47 U/L (46-116); ALT (SGPT) 28 U/L (10-68); BILIRUBIN - TOTAL 0.45 mg/dL (0.2-1.3); CALC OSMOLALITY 274 mosm/kg (275-300); CALCIUM 8.5 mg/dL (8.5-10.1); CARBON DIOXIDE 28.7 mmol/L (21.0-32.0); CHLORIDE - SERUM 103 mmol/L (98-107); CREATININE - SERUM 0.7 mg/dL (0.6-1.3); GLUCOSE 96 mg/dL (74-106); POTASSIUM - SERUM 3.3 mmol/L (3.5-5.1); PROTEIN - SERUM 5.6 g/dL (6.4-8.2); SODIUM 138 mmol/L (136-145); UREA NITROGEN 10 mg/dL (7-18); eGFR NON AFRICAN AMERICAN > 90 mL/min (90-120)
--- NOTE | 2018-06-06 07:00 | NUR ---
UP IN CHAIR AT BEDSIDE. GOOD COUGH EFFORT WET COUGH. IS TO 1000ML. CHEST AND RIGHT LEG DRESSING DRY AND INTACT. KCL 10 MEQ STARTED. SOME PAIN WITH COUGHING AND DEEP BREATHING. ENCOURAGE TO KEEP RIGHT LEG STRAIGHT
--- NOTE | 2018-06-06 08:00 | NUR ---
BREAKFAST SERVED. STATES HE FEELS LIKE HE COULD EAT A REGULAR DIET HAS HAD FALSE TEETH A COUPLE WEEKS
--- NOTE | 2018-06-06 09:20 | NUR ---
AMBULATED IN [place] WITH PHYSICAL THERAPY. TOLERATED WELL. NO SHORTNESS OF BREATH. GIRLFRIEND HERE. UPDATE GIVEN
--- NOTE | 2018-06-06 10:11 | NUR ---
AMBULATED IN [place] WITH FAMILY. DR. QUINONES HERE.
--- NOTE | 2018-06-06 11:30 | NUR ---
NAPPING AT INTERVALS, ENCOURAGE TO USE INCENTIVE SPIROMETRY DURING ALL COMMERICALS ON TV. VERBALIZED UNDERSTANDING
--- NOTE | 2018-06-06 11:53 | NUR ---
LUNCH SERVED. ONLY REQUESTING ONE BEER FOR LUNCH AND BREAKFAST.
--- NOTE | 2018-06-06 14:00 | NUR ---
AMBULATED TO BED. DRESSING REMOVED FROM SUBSTERNAL NO DRAINAGE NOTED ON DRESSING. ALL SITES CLEAN WITH BETADINE. SUTURE REMOVED. TERRENCE DRAIN PULLED. WITHOUT DIFFICULTY PATIENT TOLERATED WELL. ALL SITES CLEAN WITH BETADINE. 4X 4 APPLIED AND SECURE WITH TEGRADERM. RIGHT NECK CENTRAL LINE DRESSING REMOVED. SITE CLEAN WITH BETADINE. SUTURES REMOVED CENTRAL LINE PULLED WITHOUT DIFFICULTY. PRESSURE HELD UNTIL NO BLEEDING. DRESSING APPLIED WITH 4X4 ABD TEGREDERM TO SECURE. PATIENT TOLERATED WELL.
--- NOTE | 2018-06-06 15:00 | NUR ---
UP IN CHAIR AT BEDSIDE. NO DISTRESS. DRESSINGS DRY AND INTACT. PAIN IMPROVED. WATCHING TV.
--- NOTE | 2018-06-06 16:47 | NUR ---
WATCHING TV. NO DISTRESS. DENIES PAIN. DRESSING DRY AND INTACT
--- NOTE | 2018-06-06 17:30 | NUR ---
AMBULATED TO BATHROOM THEN TO BED. GAIT GOOD. DRESSING DRY AND INTACT. DENIES PAIN. SCD APPLIED TO LOWER LEGS. NO DISTRESS
--- NOTE | 2018-06-06 19:25 | NUR ---
REC'D TO CARE, AVIONICS ELECTRICAL ENGINEER PER FLOWSHEET. PT AWAKENS EASILY, VSS. NO SIGN OF DISTRESS. PT DENIES PAIN OR NEEDS. ALARMS ON AND C/L IN REACH.
--- NOTE | 2018-06-06 20:15 | NUR ---
ADMIN PO MEDS PER MD ORDERS. PT ALERT AND COOPERATIVE. DENIES NEED FOR A BEER AT THIS TIME. ALARMS ON AND C/L IN REACH.
--- NOTE | 2018-06-06 22:11 | NUR ---
DSG CHANGE TO R LEG INCISIONS, SKIN IVETTE INTACT. LOWER LEG INCIONS WITHOUT DRAINAGE LEFT OPEN TO AIR.
--- NOTE | 2018-06-06 23:20 | NUR ---
REASSESSMENT PER FLOWSHEET, NO ACUTE CHANGES. PT AWAKENS EASILY, VSS. DENIES PAIN OR NEEDS. ALARMS ON AND C/L IN REACH.
[2018-06-07] VITALS (13 sets, daily range): BP systolic 103–156; BP diastolic 53–86
--- NOTE | 2018-06-07 00:12 | NUR ---
PT UP TO CHAIR PER REQUEST. C/O INCISIONAL CP - ADMIN PRN PERCOCET PER ORDERS. VSS. ALARMS ON AND C/L IN REACH.
--- NOTE | 2018-06-07 01:00 | NUR ---
PT UP TO BR. VOIDED, NO BM. BACK TO CHAIR. PT REPORTS ADEQUATE PAIN RELIEF. ALARMS ON AND C/L IN REACH.
--- NOTE | 2018-06-07 03:15 | NUR ---
REASSESSMENT PER FLOWSHEET. PT BACK TO BED. VSS. DENIES NEEDS.
--- NOTE | 2018-06-07 04:45 | NUR ---
TO XRAY VIA W/C. GAIT STEADY. THEN BACK TO ROOM AND UP TO CHAIR. ALARMS ON, C/L IN REACH.
[2018-06-07 05:46] LABS: HEMATOCRIT 27.2 % (42.0-54.0); HEMOGLOBIN 9.4 g/dL (13.5-17.5); MCH 34.6 pg (26.0-34.0); MCHC 34.6 g/dL (31.0-37.0); MEAN PLATELET VOLUME 9.9 fL (7.4-10.4); RBC 2.72 10x6/uL (4.20-6.10); RDW 12.5 % (11.5-14.5); WBC 5.4 10x3/uL (4.8-10.8)
[2018-06-07 06:08] LABS: ALBUMIN 2.1 g/dL (3.4-5.0); ALKALINE PHOSPHATASE 41 U/L (46-116); BILIRUBIN - TOTAL 0.29 mg/dL (0.2-1.3); CALC OSMOLALITY 281 mosm/kg (275-300); CALCIUM 7.8 mg/dL (8.5-10.1); CARBON DIOXIDE 26.3 mmol/L (21.0-32.0); CHLORIDE - SERUM 107 mmol/L (98-107); CREATININE - SERUM 0.6 mg/dL (0.6-1.3); GLUCOSE 96 mg/dL (74-106); POTASSIUM - SERUM 3.5 mmol/L (3.5-5.1); PROTEIN - SERUM 5.1 g/dL (6.4-8.2); SODIUM 142 mmol/L (136-145); UREA NITROGEN 11 mg/dL (7-18); eGFR NON AFRICAN AMERICAN > 90 mL/min (90-120)
[2018-06-07 06:12] LABS: ALT (SGPT) 39 U/L (10-68)
--- NOTE | 2018-06-07 09:27 | NUR ---
RECIEVED REPORT ON PT, NO DISTRESS OR NEEDS NOTED, SIGNIFICANT OTHER AT BEDSIDE
--- NOTE | 2018-06-07 11:06 | OP ---
PATIENT NAME: LATASHA SÁNCHEZ MEDICAL RECORD: [id number] :50 LOCATION:D.CVI [id number] ADMISSION DATE:06/03/18 SURGEON: MARCOS MISTRY MD DATE OF OPERATION: 06/03/2018 SURGEON: Marcos Mistry MD RAGS LABORER: REANNA Vizcaino MD and Giorgio Jackson OPERATION PERFORMED: 1. Coronary artery bypass graft times 3 (left internal mammary to LAD, reverse saphenous vein graft from aorta to obtuse marginal and aorta to right coronary artery). 2. Excision of subcutaneous sebaceous cyst over the lower anterior chest. PREOPERATIVE DIAGNOSIS: Coronary artery disease. POSTOPERATIVE DIAGNOSIS: Coronary artery disease. ANESTHESIA: General endotracheal anesthesia. ESTIMATED BLOOD LOSS: Total cardiopulmonary bypass with Cell Saver retransfusion. COMPLICATIONS: None. SPECIMENS: Sebaceous cyst. CONDITION: Stable. DISPOSITION: CV ICU. OPERATIVE FINDINGS: 1. An 8-10 mm varicose vein from the right thigh, this portion was used for the right coronary artery graft. 2. Bridging incisions used after aborting endoscopic vein harvest due to bleeding from a varicosity. 3. Bridging incisions in the lower leg with 4 inches of adequate quality vein. Then, a varicosity, which was circumferentially sutured to restore normal caliber and make a segment that was more adequate for the circumflex target. The distal circumflex was left ungrafted as it looked to be more like 40% to 50% stenosis instead of 70% and without good quality vein. 4. Good quality internal mammary artery. The LAD was an intraepicardial and thin walled 1.5 mm vessel. Good Doppler flow after anastomosis and after reversal of heparin. 5. Obtuse marginal 2.0. 6. Right coronary artery 2.5. OPERATIVE INDICATION: Coronary artery disease. ADDITIONAL OPERATIVE FINDINGS: Transesophageal echocardiography with good contractility. Trace aortic insufficiency and left ventricular hypertrophy. PROCEDURE IN DETAIL: The patient was brought to the operative suite. General anesthesia was obtained, the patient was prepped and draped. Greater saphenous OPERATIVE REPORT [id number] LATASHA SÁNCHEZ vein harvested from the right leg. Side branches were divided with clips and vessel ligated proximal and distal removed. Side branches oversewn or tied. Later the leg was closed in 2 layers and drains were placed. Mediastinotomy incision was made. At the lower end of the sternum, the previously noted sebaceous cyst was removed intact and the subcutaneous tissue was undermined to allow closure later with nylons in a subcuticular. The sternum was divided. Left hemisternum was elevated. Left pleural cavity was entered. Left internal mammary artery and veins were taken down as a pedicle graft. Sternal retractor was placed. Pericardium was opened. Heparin was given. Aorta was cannulated. Dual stage venous cannula was inserted. The internal mammary was clipped distally and made ready for anastomosis. The patient was placed on cardiopulmonary bypass. The temperature was allowed to drift. Distal anastomotic sites were inspected. Aortic cardioplegic cannula was inserted. Crossclamp was placed. Cardioplegia given antegrade and this repeated at 50 minute intervals during the cross clamp time including down the completed vein grafts. Distal anastomosis was performed in standard technique. Proximal anastomosis with single cross-clamp technique. Aortic root de-aired and flow restored. Graft was de-aired and flow restored. Proximal and distal anastomotic sites inspected for bleeding. The patient resumed spontaneous rhythm, fully rewarmed, weaned from cardiopulmonary bypass and was stable. The patient was decannulated. Aortic annulus site was oversewn. Protamine was given. The graft laid appropriately. Hemostasis was assured. Thorough irrigation was undertaken. A drain was placed in the mediastinum as were single ventricular wires. Pericardial fat was loosely reapproximated. There were some adhesions in the left chest. It was evacuated as much as possible. The internal mammary harvest site was made hemostatic. The sternum was closed with wires. Fascia was closed. Subcutaneous tissue was closed. Skin was closed. Dermabond was placed. The needle and sponge counts were reported as correct. The patient was taken to ICU in stable condition. TRANSINT:[id number] Voice Confirmation ID: [id number] DOCUMENT ID: [id number] MARCOS MISTRY MD at 1106 CC: BRIDGETT SIMPSON M.D. [id number] DICTATION DATE: 06/03/18 1721 RN NEONATAL: 06/03/18 2334 ADM IN [place] [id number] [place] [id number]
--- NOTE | 2018-06-07 12:56 | NUR ---
Mechanical soft diet with 57% average po intake. Pt has 2 budweisers ordered on each tray as well. Each beer provides ~150 calories. Pt reports he is not eating as well as he does at home because he is less active here in the hospital. Pt reports no nutritional needs or requests at this time RD following
[2018-06-07] MEDS ORDERED: METOPROLOL TART50 MG PO (14:46)
[2018-06-07] MEDS ORDERED: LISINOPRIL5 MG PO (14:46)
[2018-06-07] MEDS ORDERED: COLACE100 MG PO (14:48)
[2018-06-07] MEDS ORDERED: PERCOCET 5-3251 TAB PO (14:48)
--- NOTE | 2018-06-07 15:16 | NUR ---
1100 AMBULATED INDEPENDENTLY IN HALLWAY 1300 ATE 100% LUNCH 1500 TPM WIRE REMOVED BY ANEL GAUTAM NURSE, SHE ALSO REVIEWED DC TEACHING AND APPOINTMENTS WITH PT AND ALAN (SIGNIFICANT OTHER)
[2018-06-07] MEDS ORDERED: K-DUR20 MEQ PO (15:20)
--- NOTE | 2018-06-07 15:53 | NUR ---
REVIEWED DC MEDS AND INSTRUCTIONS, NO QUESTIONS, ASSISTED TO CAR [id number]
--- NOTE | 2018-06-07 15:55 | MORECARE ---
CASE MANAGEMENT DISCHARGE SUMMARY PATIENT: LATASHA SÁNCHEZ UNIT: [id number] ADM DATE: 06/03/18 AGE: 67 : 50 SEX: M [facility] AUTHOR: ZARINA OCHOA PHYSICIAN: REFERRING PHYSICIAN: MONTANA MISTRY MD DATE OF SERVICE: 06/07/18 Discharge Plan Patient Name: LATASHA SÁNCHEZ Facility: [facility]:[place] : 1950 Planned Disposition: Home Anticipated Discharge Date: Discharge Date: 06/07/2018 Expected LOS: Initial Reviewer: [email or web address] Initial Review Date: 06/07/2018 Generated: 06/07/18 4:55 pm DCPIA - Discharge Planning Initial Assessment Updated by MAT: Yahaira Lee on 06/07/18 3:55 pm * Is the patient Alert and Oriented? Yes * How many steps to enter\exit or inside your home? RAMP * PCP SHARON * Pharmacy [facility] * Preadmission Environment Home with Family * ADLs Independent * Equipment None * List name and contact numbers for known caregivers / representatives who currently or will assist patient after discharge: ALAN PEREZ -SIG OTHER- [phone] MAIKEL PRINCESS - DAUGHTER- [phone] * Verbal permission to speak to the caregivers and representatives has been obtained from the patient. Yes * Community resources currently utilized None * Additional services required to return to the preadmission environment? No * Can the patient safely return to the preadmission environment? Yes * Has this patient been hospitalized within the prior 30 days at any hospital? No Coverage Notice Reviewer: [id number] - Yahaira Lee Notice Issued Date-Time: 06/07/2018 15:20 Notice Type: IM Discharge Notice Notice Delivered To: Patient Relationship to Patient: Self Chemical Plant Operator Name: Delivery Method: HAND - Hand Delivered Sharita Days: Prior Verbal Notification: Recipient Understood Notice: Yes Recipient Signature: Yes Med Rec Note Co-signed by Attending: Coverage Notice Comment: Patient Name: LATASHA SÁNCHEZ Page [id number] at 1555 All edits/amendments must be made on the electronic document DICTATION DATE: 06/07/18 1554 OUTDOOR LANDSCAPE ARCHITECT: GIOVANNA 06/07/18 1554 RPT#: [id number] DC DATE:06/07/18 STATUS: DIS IN [facility] [address] [place] [address] END OF REPORT
--- NOTE | 2018-06-07 16:04 | MORECARE ---
CASE MANAGEMENT DISCHARGE SUMMARY PATIENT: LATASHA SÁNCHEZ UNIT: [id number] ADM DATE: 06/03/18 AGE: 67 : 50 SEX: M ROOM/BED: D[facility] AUTHOR: GABRIELA,DOC PHYSICIAN: REFERRING PHYSICIAN: MONTANA MISTRY MD DATE OF SERVICE: 06/07/18 Discharge Plan Patient Name: LATASHA ÁSNCHEZ Facility: [facility]:[place] : 1950 Planned Disposition: Home Anticipated Discharge Date: Discharge Date: 06/07/2018 Expected LOS: Initial Reviewer: [email or web address] Initial Review Date: 06/07/2018 Generated: 06/07/18 5:03 pm Comments DCP- Discharge Planning Updated by [email or web address]: Yaharia Lee on 06/07/18 3:[address] LATE ENTRY 06/07/18 @ 0900 Patient Name: LATASHA SÁNCHEZ Admission Status: Urgent Accout number: [id number] Admission Date: 06-03-2018 : 1950 Admission Diagnosis: Attending: MONTANA MISTRY Current LOS: 4 Anticipated DC Date: Planned Disposition: Home Primary Insurance: MEDICARE A & B Discharge Planning Comments: CM met with patient at bedside. Patient states he lives at home with family and plans to return home upon discharge. Patient denies any discharge needs at this time. CM will continue to follow and assist as needed with discharge planning / needs. IMM explained and served 06/07/18 @ 1520 Discharge Door Operator: Yahaira Lee DCPIA - Discharge Planning Initial Assessment Updated by [email or web address]: Yahaira Lee on 06/07/18 3:55 pm * Is the patient Alert and Oriented? Yes * How many steps to enter\exit or inside your home? RAMP * PCP SHARON * Pharmacy [facility] * Preadmission Environment Home with Family * ADLs Independent * Equipment None * List name and contact numbers for known caregivers / representatives who currently or will assist patient after discharge: ALAN PEREZ -SIG OTHER- [phone] MAIKEL PRINCESS - DAUGHTER- [phone] * Verbal permission to speak to the caregivers and representatives has been obtained from the patient. Yes * Community resources currently utilized None * Additional services required to return to the preadmission environment? No * Can the patient safely return to the preadmission environment? Yes * Has this patient been hospitalized within the prior 30 days at any hospital? No Coverage Notice Reviewer: [email or web address] Lennie Lee Notice Issued Date-Time: 06/07/2018 15:20 Notice Type: IM Discharge Notice Notice Delivered To: Patient Relationship to Patient: Self Landfill Attendant Name: Delivery Method: HAND - Hand Delivered Sharita Days: Prior Verbal Notification: Recipient Understood Notice: Yes Recipient Signature: Yes Med Rec Note Co-signed by Attending: Coverage Notice Comment: Last DP export: 06/07/18 2:55 pm Patient Name: LATASHA SÁNCHEZ Page [id number] at 1604 All edits/amendments must be made on the electronic document DICTATION DATE: 06/07/181602 TRADEMARK PARALEGAL: GIOVANNA 06/07/18 160 RPT#: [id number] DC DATE:06/07/18 STATUS: DIS IN [facility] [address] [place] [address] END OF REPORT
--- NOTE | 2018-06-07 16:31 | MORECARE ---
CASE MANAGEMENT DISCHARGE SUMMARY PATIENT: LATASHA SÁNCHEZ UNIT: [id number] ADM DATE: 06/03/18 AGE: 67 : 50 SEX: M ROOM/BED: D[facility] AUTHOR: GABRIELA,DOC PHYSICIAN: REFERRING PHYSICIAN: MONTANA MISTRY MD DATE OF SERVICE: 06/07/18 Discharge Plan Patient Name: LATASHA SÁNCHEZ Facility: [facility]:[place] : 1950 Planned Disposition: Home Anticipated Discharge Date: Discharge Date: 06/07/2018 Expected LOS: Initial Reviewer: [email or web address] Initial Review Date: 06/07/2018 Generated: 06/07/18 5:30 pm Comments DCP- Discharge Planning Updated by [email or web address]: Yahaira Lee on 06/07/18 3:[address] LATE ENTRY 06/07/18 @ 0900 Patient Name: LATASHA SÁNCHEZ Admission Status: Urgent Accout number: [id number] Admission Date: 06-03-2018 : 1950 Admission Diagnosis: Attending: MONTANA MISTRY Current LOS: 4 Anticipated DC Date: Planned Disposition: Home Primary Insurance: MEDICARE A & B Discharge Planning Comments: CM met with patient at bedside. Patient states he lives at home with family and plans to return home upon discharge. Patient denies any discharge needs at this time. CM will continue to follow and assist as needed with discharge planning / needs. IMM explained and served 06/07/18 @ 1520 Wood Box Maker: Yahaira Lee DCPIA - Discharge Planning Initial Assessment Updated by [email or web address]: Yahaira Lee on 06/07/18 3:55 pm * Is the patient Alert and Oriented? Yes * How many steps to enter\exit or inside your home? RAMP * PCP SHARON * Pharmacy [facility] * Preadmission Environment Home with Family * ADLs Independent * Equipment None * List name and contact numbers for known caregivers / representatives who currently or will assist patient after discharge: ALAN PEREZ -SIG OTHER- [phone] MAIKEL PRINCESS - DAUGHTER- [phone] * Verbal permission to speak to the caregivers and representatives has been obtained from the patient. Yes * Community resources currently utilized None * Additional services required to return to the preadmission environment? No * Can the patient safely return to the preadmission environment? Yes * Has this patient been hospitalized within the prior 30 days at any hospital? No Coverage Notice Reviewer: [id number] Lennie Lee Notice Issued Date-Time: 06/07/2018 15:20 Notice Type: IM Discharge Notice Notice Delivered To: Patient Relationship to Patient: Self Polymer Scientist Name: Delivery Method: HAND - Hand Delivered Sharita Days: Prior Verbal Notification: Recipient Understood Notice: Yes Recipient Signature: Yes Med Rec Note Co-signed by Attending: Coverage Notice Comment: Last DP export: 06/07/18 3:04 pm Patient Name: LATASHA SÁNCHEZ Page [phone] at 1631 All edits/amendments must be made on the electronic document DICTATION DATE: 06/07/18 1630 HISTORY CARD CLERK: GIOVANNA 06/07/18 1630 RPT#: [id number] DC DATE:06/07/18 STATUS: DIS IN [facility] [address] [place] [address] END OF REPORT
--- NOTE | 2018-06-15 13:29 | TEE ---
PATIENT:LATASHA SÁNCHEZ MEDICAL RECORD: [id number] LOCATION:[place] [address] AGE OF PATIENT: 67 ADMISSION DATE: 06/03/18 SEX: M REFERRING PHYSICIAN: INTERPRETING PHYSICIAN: TOREY TADEO MD TRANSESOPHAGEAL ECHOCARDIOGRAM Date: 06/03/18 SUHA CHARGE Y INDICATIONS: CABG PREMEDICATIONS: PATIENT'S RESPONSE PROCEDURE DOPPLER MEASUREMENTS: LVIT LA PA RA LVOT RVOT Asc. Ao AV Gradient Peak AV Mean AV Area MV Gradient Peak MV Mean MV Area INTERPRETATION: Doppler: 2-D: COLOR FLOW DOPPLER NORMAL SALINE STUDY: MISCELLANOUS: DIAGNOSIS: PLAN: Uniforms Sales Representative:1 Dr. Tadeo Network Developer: Wale YI COMMENTS: FIDELIA/TATIANA PATIENT DATE OF SERVICE: 06/03/2018 PROCEDURE: Transesophageal echo evaluation of valvular structures during bypass surgery. FINDINGS: 1. Left ventricular chamber size is within normal limits. Left ventricular systolic function is normal. Overall ejection fraction estimated at 55%. 2. Left atrium, right atrium, and right ventricle chamber sizes are within TRANSESOPHAGEAL ECHOCARDIOGRAM REPORT [id number] LATASHA SÁNCHEZ [place] normal limits. 3. Valvular structures have normal structure and motion. 4. Doppler interrogation reveals mild aortic insufficiency, mild mitral regurgitation, no other valvular insufficiency or stenosis. 5. No evidence of pericardial effusion or left ventricular thrombus. TRANSINT:[id number] Voice Confirmation ID: [id number] DOCUMENT ID: [id number] at 1329 CC: [id number] DICTATION DATE: 06/03/18 1337 MEAT DRESSER: 06/04/18 0224 DIS IN 06/07/18 [facility] [address] [place] [id number]
== END 2018-06-07 15:50 | disposition home or self-care (01) | DRG 236 ==
LOC: D.SDCHOLD 11:00 → D.CVICU 06-03 05:00 → D.SDCHOLD 06-03 07:30 → D.CVICU 06-03 11:04
PROVIDERS: ADMIT Thoracic Surgery (Cardiothoracic Vascular Surgery)
PROC: 06BP0ZZ Excision of Right Saphenous Vein, Open Approach (ICD-10-PCS; 2018-06-03)
PROC: 0JB60ZZ Excision of Chest Subcutaneous Tissue and Fascia, Open Approach (ICD-10-PCS; 2018-06-03)
PROC: 5A1221Z Performance of Cardiac Output, Continuous (ICD-10-PCS; 2018-06-03)
PROC: B24BZZ4 Ultrasonography of Heart with Aorta, Transesophageal (ICD-10-PCS; 2018-06-03)
PROC: 02100Z9 Bypass Coronary Artery, One Artery from Left Internal Mammary, Open Approach (ICD-10-PCS; principal; 2018-06-03 07:30)
PROC: 021109W Bypass Coronary Artery, Two Arteries from Aorta with Autologous Venous Tissue, Open Approach (ICD-10-PCS; 2018-06-03 07:30)
DX: I25.10 Atherosclerotic heart disease of native coronary artery without angina pectoris (principal); J98.11 Atelectasis; E78.5 Hyperlipidemia, unspecified; I10 Essential (primary) hypertension; F17.200 Nicotine dependence, unspecified, uncomplicated; F10.10 Alcohol abuse, uncomplicated; R00.0 Tachycardia, unspecified; D53.9 Nutritional anemia, unspecified; D69.6 Thrombocytopenia, unspecified; L72.3 Sebaceous cyst

== ENCOUNTER 2018-06-12 17:54 | Outpatient (CLI) | payer MEDICARE ==
[~2018-06-12] VITALS: Ht 175.3 cm; Wt 75.6 kg
--- NOTE | ~2018-06-12 | HEMODYNAMI ---
PATIENT:LATASHA SÁNCHEZ MEDICAL RECORD: [id number] : 50 LOCATION:D.CAT ADMISSION DATE: 06/12/18 Generatedon:06/12/201819:46 Patient name: LATASHA SÁNCHEZ Patient #: [id number] SSN: : 1950 Date of study: 06/12/2018 Page: Of Hemodynamic Procedure Report Patient Data Patient Demographics Procedure consent was obtained First Name: LATASHA Gender: Male Last Name: PRINCESS : 1950 [facility] Initial: JEANA Age: 67 year(s) Patient #: [id number] Race: Unknown Additional ID: [id number] Contact details [address]: [address] [place] [address] State: [place] City: [place] Zip code: [address] Past Medical History Allergies Allergen Reaction Date Comments Reported Sulfa drugs 02/24/2018 Admission Admission Data Admission Date: 06/12/2018 Admission Time: 17:54 Procedure Procedure Types Cath Procedure Diagnostic Procedure LHC LHC w/Coronaries w/Grafts Sedation Charges Moderate Sedation up to 30 minutes PCI Procedure AMI/SVG/SR TECHNICAL SALES CONSULTANT PTCA or Stent AMI-BMS/JACKSON Initial Procedure Description Procedure Date Procedure Date: 06/12/2018 Procedure Start Time: 18:59 Procedure End Time: 19:46 Procedure Staff Name Function Eder Hough MD Performing Physician Krystyna Upton RT Monitor Sav Garvin RT Scrub Jung Maki RN Nurse Procedure Data Cath Procedure Fluoroscopy Diagnostic fluoroscopy Total fluoroscopy Time: time: 11.2 min 11.2 min Diagnostic fluoroscopy Total fluoroscopy dose: dose: 1638 mGy 1638 mGy Contrast Material Contrast Material Type Amount (ml) Isovue 300 89 Entry Location Entry Primary Successful Side Size Upsize Upsize Entry Closure Succes sful Closure Location (Fr) 1 (Fr) 2 (Fr) Remarks Device Remarks Femoral Right 6 Fr Exoseal artery Short Estimated blood loss: 10 ml Diagnostic catheters Device Type Used For End Catheter Placement MULTIPACK JL 4.0 5Fr Left Coronary catheter Angiography MULTIPACK 3DRC 5Fr Right Coronary catheter Angiography DIAGNOSTIC LCB 5Fr SVG Angiography catheter ([id number]) MULTIPACK 3DRC 5Fr Internal mammary catheter arteriography Procedure Complications No complications Procedure Medications Medication Administration Route Dosage 0.9% NaCl I.V. 100 ml/hr Oxygen etCO2 Nasal cannula 3 l/min Heparin Flush Bag added to field 2 bags (1000units/500ml NS) Lidocaine 2% added to field Versed I.V. 0.5 mg Integrilin (Bolus I.V. 6.8 ml 2mg/ml) Integrilin (Bolus wasted 3.2 ml 2mg/ml) Integrilin Drip I.V. drip 12 ml/hr (75mg/100ml) Nitroglycerin IC/IA I.C. 200 mcg Integrilin Drip 12 ml/hr (75mg/100ml) Vasotec I.V. 2.5 mg Plavix P.O. 600 mg Hemodynamics Rest Pre Cath Intra NCS Post Cath Vital Signs Time Heart Resp SPO2 etCO2 NIBP (mmHg) Rhythm Pain Sedation Rate (ipm) (%) (mmHg) Status Level (bpm) 18:57:47 51 11 99 22.5 135/75(125) NSR 0 (11) 10(A) , No pain 19:02:00 50 17 100 0 136/71(113) NSR 0 (11) 10(A) , No pain 19:06:14 49 13 98 11.2 136/71(115) NSR 0 (11) 10(A) , No pain 19:10:24 93 17 95 22.5 135/86(107) NSR 0 (11) 10(A) , No pain 19:14:36 90 11 95 0 142/77(97) NSR 0 (11) 10(A) , No pain 19:18:44 52 12 92 0 105/55(72) NSR 0 (11) 9(A) , No pain 19:22:50 46 14 94 0 107/61(93) NSR 0 (11) 9(A) , No pain 19:27:39 78 18 95 0 132/83(112) NSR 0 (11) 9(A) , No pain 19:31:47 80 13 95 0 142/87(109) NSR 0 (11) 9(A) , No pain 19:35:58 90 13 95 0 153/87(118) NSR 0 (11) 9(A) , No pain 19:40:12 89 15 96 3 154/90(123) NSR 0 (11) 9(A) , No pain 19:44:24 88 13 95 18 165/96(128) NSR 0 (11) 9(A) , No pain Medications Time Medication Route Dose Verified Delivered Reason Notes E ffectiveness by by 19:01:12 0.9% NaCl I.V. 100 Jung Jung Per ml/hr Shanthi Maki physician RN RN 19:01:24 Oxygen etCO2 3 Jung Jung Per Nasal l/min Shanthi Maki physician cannula RN RN 19:01:34 Heparin Flush added 2 Jung Jung for local Bag to bags Lorigan Lorigan anesthetic (1000units/500ml field RN RN NS) 19:02:37 Lidocaine 2% added Jung Jung for local to Lorigan Lorigan anesthetic field RN RN 19:03:00 Versed I.V. 0.5 Jung Jung for sedation mg Shanthi Maki RN RN 19:11:29 Integrilin I.V. 6.8 Jung Jung for (Bolus 2mg/ml) ml Lorigan Shanthi antiplatelet RN RN therapy 19:11:42 Integrilin wasted 3.2 Jung Jung to sharp's (Bolus 2mg/ml) ml Lorsusie Maki RN RN 19:12:02 Integrilin Drip I.V. 12 Jung Jung for (75mg/100ml) drip ml/hr Lorsusie Maki antiplatelet RN RN therapy 19:12:21 Nitroglycerin I.C. 200 Jung Eder for IC/IA mcg Lorigan Abby vasodilation RN 19:21:50 Integrilin Drip I.V. 12 Jung Jung for (75mg/100ml) drip ml/hr Lorigan Shanthi antiplatelet stopped RN RN therapy 19:35:22 Vasotec I.V. 2.5 Jung Jung for mg Lorsusie Maki hypertension RN RN 19:40:50 Plavix P.O. 600 Jung Jung for mg Lorigan Lorsusie antiplatelet RN RN therapy Procedure Log Time Note 18:39:53 Time tracking: Regular hours (M-F 7:00 - 5:00) 18:39:58 Plan of Care:Hemodynamics will remain stable., Cardiac rhythm will remain stable., Comfort level will be maintained., Respiratory function will remain adequate., Patient/ family verbilizes understanding of procedure., Procedure tolerated without complication., Recovers from procedure without complications.. 18:40:01 Sav Virgie RT(R) sent for patient. Start room use. 18:47:47 Patient received from ED to CCL 1 Alert and oriented. Tansferred to table in Supine position. 18:47:48 Warm blankets applied, and marcy hugger turned on for patient comfort. 18:47:49 Correct patient and procedure confirmed by team. 18:47:51 Signed procedure consent form obtained from patient. 18:47:51 ECG and BP/O2 sat monitors applied to patient. 18:47:52 Full Disclosure recording started 18:56:50 Vital chart was started 18:57:10 Rhythm: sinus bradycardia, w/ ST elevation 18:57:16 H&P Date Dictated: 06/12/2018 ER History on chart.. 18:57:17 Pre-procedure instructions explained to patient. 18:57:18 Pre-op teaching completed and patient verbalized understanding. 18:57:21 Family in waiting room. 18:57:22 Patient NPO since Midnight. 18:57:34 Is the patient allergic to Iodine/contrast media? No. 18:57:35 Is patient on blood thinner?No 18:57:37 Patient diabetic? No. 18:57:40 Previous problem with sedation/anesthesia? No ? 18:58:02 Snore? Yes 18:58:03 Sleep apnea? No 18:58:04 Deviated septum? No 18:58:05 Opens mouth fully? Yes 18:58:05 Sticks out tongue? Yes 18:58:11 Airway obstruction? Yes ASTHMA 18:58:14 Dentures? No ? 18:58:17 Pre procedure: right dorsailis pedis pulse 1+ Palpable, but thready & weak; easily obliterated 18:58:18 Patient pain scale 0/10 ?. 18:58:25 IV patent on arrival in left forearm with 0.9% NaCl at O. 18:58:27 Lab results completed and on chart. 18:58:32 Right groin area was prepped with chlora-prep and draped in sterile fashion 18:58:37 Alarms reviewed by R. N. 18:58:38 Sharps counted by scrub and verified by R.N. 18:58:55 Final Timeout: patient, procedure, and site verified with staff and physician. All members of the team are in agreement. 18:58:58 Right groin site verified by team. 18:59:03 Physical assessment completed. ASA score P 3 - A patient with severe systemic disease as per Eder Hough MD. 18:59:28 Sedation plan: IV Moderate Sedation Medication:Versed, Fentanyl 18:59:36 Procedure started. 18:59:44 Local anesthetic to right femoral artery with Lidocaine 2% by Eder Hough MD.INITIAL ACCESS ONLY 19:00:05 A 6 Fr Short sheath was inserted into the Right Femoral artery 19:00:26 Use device set Femoral Dx 19:00:27 ACIST Syringe (56708) opened to sterile field. 19:00:28 Bag Decanter (2002S) opened to sterile field. 19:00:28 Medline Cath Pack ([id number]) opened to sterile field. 19:00:28 DIAGNOSTIC WIRE .035 260cm J wire (982997) opened to sterile field. 19:00:30 ACIST Hand Control (33859) opened to sterile field. 19:00:30 ACIST Manifold (57211) opened to sterile field. 19:00:31 DIAGNOSTIC Multipack 5Fr catheter set ([id number]) opened to sterile field. 19:00:31 Tegaderm 4 x 4 (1626W) opened to sterile field. 19:00:35 Use device set ABBY PCI 19:00:36 SHEATH 6FR [place] ([id number]) opened to sterile field. 19:00:38 INFLATOR Merit BasixCompak (AL5306) opened to sterile field. 19:00:41 WHISPER 300cm guide wire ([id number]) opened to sterile field. 19:01:12 0.9% NaCl 100 ml/hr I.V. was administered by Jung Maki RN; Per physician; 19:01:24 Oxygen 3 l/min etCO2 Nasal cannula was administered by Jung Maki RN; Per physician; 19:01:34 Heparin Flush Bag (1000units/500ml NS) 2 bags added to field was administered by Jung Maki RN; for local anesthetic; 19:01:46 A MULTIPACK JL 4.0 5Fr catheter was advanced over the wire and used for Left Coronary Angiography. 19:01:53 Catheter removed. 19:02:15 A MULTIPACK 3DRC 5Fr catheter was advanced over the wire and used for Right Coronary Angiography. 19:02:37 Lidocaine 2% added to field was administered by Jung Maki RN; for local anesthetic; 19:03:00 Versed 0.5 mg I.V. was administered by Jung Maki RN; for sedation; 19:03:30 Catheter removed. 19:05:04 6 Fr HSI guide catheter was inserted over the wire 19:05:56 WHISPER wire advanced. 19:08:46 Inflate balloon Inflation number: 1 A EMERGE OTW 3.0 x 15 balloon ([id number]) was prepped and advanced across the Dist RCA, then inflated to 10 TOBI for 0:16 (min:sec). 19:09:17 Inflation number: 2 The EMERGE OTW 3.0 x 15 balloon ([id number]) was reinflated across the Dist RCA, to 10 TOBI for 0:24 (min:sec). 19:11:29 Integrilin (Bolus 2mg/ml) 6.8 ml I.V. was administered by Jung Maki RN; for antiplatelet therapy; 19:11:42 Integrilin (Bolus 2mg/ml) 3.2 ml wasted was administered by Jung Maki RN; to sharp's; 19:12:02 Integrilin Drip (75mg/100ml) 12 ml/hr I.V. drip was administered by Jung Maki RN; for antiplatelet therapy; 19:12:21 Nitroglycerin IC/IA 200 mcg I.C. was administered by Eder Hough MD; for vasodilation; 19:12:32 Balloon removed over the wire. 19:14:54 Place stent Inflation Number: 3 A INTEGRITY OTW 3.0 X 18 stent ([id number]) was prepped and advanced across the 1st RPL. The stent was deployed at 0 TOBI for 0:12 (min:sec). 19:17:35 Stent catheter was removed intact over wire. 19:19:44 Place stent Inflation Number: 1 A INTEGRITY OTW 3.0 X 15 stent ([id number]) was prepped and advanced across the 1st RPL. The stent was deployed at 14 TOBI for 0:11 (min:sec). 19:21:50 Integrilin Drip (75mg/100ml) 12 ml/hr I.V. drip stopped was administered by Jung Maki RN; for antiplatelet therapy; 19:22:30 Inflation number: 2 The stent balloon was then re-inflated across the 1st RPL to 8 TOBI for 1:52 (min:sec). 19:27:21 Stent catheter was removed intact over wire. 19:30:26 Place stent Inflation Number: 1 A INTEGRITY OTW 3.5 X 26 stent ([id number]) was prepped and advanced across the Mid RCA. The stent was deployed at 12 TOBI for 0:22 (min:sec). 19:33:00 Stent catheter was removed intact over wire. 19:33:01 Wire removed. 19:33:01 Guide catheter removed. 19:34:42 A DIAGNOSTIC LCB 5Fr catheter ([id number]) was advanced over the wire and used for SVG Angiography.TO CIRC 19:35:22 Vasotec 2.5 mg I.V. was administered by Jung Maki RN; for hypertension; 19:36:03 Catheter removed. 19:36:24 A MULTIPACK 3DRC 5Fr catheter was advanced over the wire and used for Internal mammary arteriography.TO LAD 19:38:36 Catheter removed. 19:38:46 Sheath removed intact; hemostasis achieved with Exoseal to the Right Femoral artery. 19:38:48 Procedure ended.(Physican Out) 19:39:10 Fluoroscopy time 11.20 minutes. 19:39:14 Flurop Dose total: 1638 19:39:14 Fluoroscopy dose: 1638 mGy 19:39:23 Contrast amount:Isovue 300 89ml. 19:39:24 Sharps counted by scrub and verified by R.N. 19:39:26 Insertion/operative site no bleeding no hematoma. 19:39:28 Post-op/insertion site Right Femoral artery dressed using a 4 x 4 and Tegaderm. 19:39:32 Post right femoral artery:stable, clean and dry 19:39:33 Post Procedure Pulses reassessed and unchanged 19:39:39 Post-procedure physical assessment completed. ASA score P 3 - A patient with severe systemic disease as per Eder Hough MD. 19:39:45 Post procedure rhythm: sinus rhythm 19:39:48 Estimated blood loss: 10 ml 19:39:49 Post procedure instruction explained to patient.Patient verbalizes understanding. 19:39:50 Patient needs reinforcement of post procedure teaching. 19:40:50 Plavix 600 mg P.O. was administered by Jung Maki RN; for antiplatelet therapy; 19:41:14 Procedure type changed to Cath procedure, Diagnostic procedure, LHC, LHC w/Coronaries w/Grafts, Sedation Charges, Moderate Sedation up to 30 minutes, PCI procedure, AMI/SVG/SR TECHNICAL SALES CONSULTANT PTCA or Stent, AMI-BMS/JACKSON Initial 19:41:30 Procedure Complication : No complications 19:41:33 See physician's report for complete and final results. 19:41:49 EXOSEAL 6Fr (EX600) opened to sterile field. 19:42:40 Procedure and supply charges have been captured, reviewed, submitted and are correct. 19:44:10 Vital chart was stopped 19:44:20 Vital chart was started 19:46:11 Vital chart was stopped 19:46:16 Report given to CVICU. 19:46:20 Patient transfered to CVICU with Stretcher. 19:46:32 Procedure ended. 19:46:32 Full Disclosure recording stopped 19:46:36 End room use (Document Last) Intervention Summary Intervention Notes Time ActionType Lesion and Equipment Action# Pressure Duration Attributes Used 19:08:46 Inflate Dist RCA EMERGE OTW 1 10 00:16 balloon 3.0 x 15 balloon ([id number]) 19:09:17 Reinflate Dist RCA EMERGE OTW 2 10 00:24 balloon 3.0 x 15 balloon ([id number]) 19:14:54 Place stent 1st RPL INTEGRITY 3 0 00:12 OTW 3.0 X 18 stent ([id number]) 19:19:44 Place stent 1st RPL INTEGRITY 1 14 00:11 OTW 3.0 X 15 stent ([id number]) 19:22:30 Reinflate 1st RPL INTEGRITY 2 8 01:52 stent OTW 3.0 X 15 balloon stent ([id number]) 19:30:26 Place stent Mid RCA INTEGRITY 1 12 00:22 OTW 3.5 X 26 stent ([id number]) Device Usage Item Name Manufacture Quantity Catalog Number Hospital Part Current Min imal Lot# / Charge Number Stock Stock Serial# Code ACIST Acist 1 22957 848295 467335 879852 20 Syringe Medical (57526) Systems Inc Bag Decanter Microtek 1 2001S 481508 82835 877306 5 () Medical Inc. Medline Cath Medline 1 [id number] 026473 61352 627515 5 Pack ([id number]) DIAGNOSTIC [facility] Luis 1 847325 499143 029825 268344 30 WIRE .035 260cm J wire (909325) ACIST Hand Acist 1 93301 190577 963024 969250 5 Control Medical (68438) Systems Inc ACIST Acist 1 85774 341775 862586 804936 5 Manifold Medical (72752) Systems Inc DIAGNOSTIC Cardinal 1 WZ7121 708792 41921 986173 30 Multipack Health 5Fr catheter set (GL7658) Tegaderm 4 x 3M 1 1626W 354575 926368 544077 5 4 (1626W) SHEATH 6FR Terumo 1 DET208 147502 569404 256956 40 [place] (SKI333) INFLATOR [facility] 1 GU2610 035207 292405 077226 15 [facility] BasixCompak (PV4671) WHISPER [place]alski 1 [id number] 345080 821025 037177 5 300cm guide Vascular wire ([id number]) MULTIPACK JL Cardinal 1 247662 5 4.0 5Fr Health catheter MULTIPACK Cardinal 1 005289 5 3DRC 5Fr Health catheter EMERGE OTW [place] 1 [id number] 346889 614392 383912 5 3.0 x 15 Scientific balloon ([id number]) INTEGRITY Medtronic 1 [id number] 510022 173035 0 [id number] OTW 3.0 X 18 stent ([id number]) INTEGRITY Medtronic 1 [id number] 286107 419227 5 [id number] OTW 3.0 X 15 stent ([id number]) INTEGRITY Medtronic 1 [id number] 701541 333778 7 [id number] OTW 3.5 X 26 stent ([id number]) DIAGNOSTIC Cardinal 1 [id number] 634953 932052 258904 5 LCB 5Fr Health catheter (328126W) EXOSEAL 6Fr Cardinal 1 EX600 017194 134833 081243 10 (EX600) Health Signature [place] Stage Time Signature Unsigned Intra-Procedure 06/12/2018 Krystyna 7:46:48 PM Counts RT(R) Signatures Monitor : Krystyna Signature : Counts RT Date : Time : [address] [place] [address]
[~2018-06-12 17:54] MED LIST changes: +BACLOFEN10 MG PO; +BAYER CHEWABLE81 MG PO; +COLACE100 MG PO; +IBUPROFEN400 MG PO; +K-DUR20 MEQ PO; +KENALOG IN ORABA5 GM TOPICAL; +LISINOPRIL5 MG PO; +METOPROLOL TART50 MG PO; +PERCOCET 5-3251 TAB PO; +VALIUM5 MG PO
[2018-06-12 18:12] LABS: BASOPHILS 0.2 % (0-2); EOSINOPHILS 1.2 % (0-7); HEMOGLOBIN 12.2 g/dL (13.5-17.5); IMMATURE GRANULOCYTES 0.9 % (0-5); LYMPHOCYTES 22.2 % (15-50); MCH 34.1 pg (26.0-34.0); MCHC 33.9 g/dL (31.0-37.0); MCV 100.6 fL (80.0-100.0); MONOCYTES 9.8 % (2-11); NEUTROPHILS 65.7 % (40-80); RBC 3.58 10x6/uL (4.20-6.10); RDW 13.2 % (11.5-14.5); WBC 12.8 10x3/uL (4.8-10.8)
[2018-06-12 18:17] LABS: PLATELET COUNT 447 10x3/uL (130-400)
[2018-06-12 18:32] LABS: ALKALINE PHOSPHATASE 87 U/L (46-116); ALT (SGPT) 67 U/L (10-68); BILIRUBIN - TOTAL 0.28 mg/dL (0.2-1.3); CALC OSMOLALITY 279 mosm/kg (275-300); CALCIUM 8.8 mg/dL (8.5-10.1); CARBON DIOXIDE 24.9 mmol/L (21.0-32.0); CHLORIDE - SERUM 103 mmol/L (98-107); GLUCOSE 129 mg/dL (74-106); POTASSIUM - SERUM 5.6 mmol/L (3.5-5.1); PROTEIN - SERUM 6.8 g/dL (6.4-8.2); SODIUM 140 mmol/L (136-145); UREA NITROGEN 10 mg/dL (7-18); eGFR NON AFRICAN AMERICAN 79 mL/min (90-120)
[2018-06-12 18:43] LABS: CKMB 1.3 U/L (0.0-3.6); CREATINE KINASE 63 UL (21-232); TROPONIN-I < 0.017 ng/mL (0.000-0.060)
[2018-06-12 20:00] VITALS: BP 172/91
--- NOTE | 2018-06-12 20:28 | NUR ---
1999 PT RECEIVED CARE ASSUMED. PT LAYING IN BED RESTING. ASSESSMENT DONE SEE FLOW SHEET. WILL CONTINUE TO MONITOR. 2027 PLASTIC SURGERY COORDINATOR CALLED ABOUT PO MEDS AND BP SYSTOLIC 172. ORDER TO HOLD PLAVIX UNTIL AM DOSE GIVEN. NO BP PARAMETER GIVEN. WILL CONTINUE TO MONITOR.
[2018-06-12 20:32] VITALS: BP 172/91; Ht 175.3 cm; Wt 75.6 kg
[2018-06-12 21:00] VITALS: BP 158/89
--- NOTE | 2018-06-12 21:04 | NUR ---
TELEMETRY REVEIWED. APPEARS 1ST DEGREE BLOCK.
[2018-06-12 22:00] VITALS: BP 156/90
--- NOTE | 2018-06-12 22:58 | NUR ---
REASSESSMENT DONE SEE FLOW SHEET. VSS. NO SIGNS OF ACUTE DISTRESS NOTED.
[2018-06-12 23:00] VITALS: BP 144/81
[2018-06-13] VITALS (10 sets, daily range): BP systolic 136–167; BP diastolic 75–89
--- NOTE | 2018-06-13 01:00 | NUR ---
WATER PROVIDED. PT RESTING IN BED NO SIGNS OF DISCOMFORT.
--- NOTE | 2018-06-13 03:00 | NUR ---
REASSESSMENT DONE SEE FLOW SHEET. VSS. PT VERBALIZES NO COMPLAINTS WILL CONTINUE TO MONITOR.
--- NOTE | 2018-06-13 05:00 | NUR ---
PT LAYING IN BED RESTING. VSS. GARCIA NOTED WHILE ASLEEP. IO COLLECTED DAILY WEIGHT COLLECTED. WILL CONTINUE TO MONITOR.
--- NOTE | 2018-06-13 08:00 | NUR ---
AT BEDSIDE. QUESTIONS ANSWERED TO WHAT PROCEDURES WERE DONE ON THIS STAY. AND PATIENT BECAME AGITATED AND BEGAN QUESTIONING ME REGARDING WHY GRAFT OCCLUDED AND WHY HE COULDN'T HAVE PAIN MEDS. I TOLD THEM I WOULD HAVE TO CALL THE DOCTOR. HE REQUESTED HIS BEER SO I GAVE HIM ONE AND TOLD THEM I WOULD CALL DR. ESTEVEZ.
--- NOTE | 2018-06-13 08:30 | NUR ---
TALKED TO DR. MORA ABOUT PATIENT BEING UPSET AND REQUEST FOR PAIN MED. NO ORDER REC'D FOR PAIN MED. HE INSTRUCTED ME TO GIVE HIM THE ATIVAN INSTEAD.
--- NOTE | 2018-06-13 10:30 | NUR ---
DR. MISTRY HERE. TALKED AT LENGTH WITH PATIENT, AND DAUGHTER (ON PHONE) ABOUT WHAT COULD HAVE HAPPENED TO CAUSE HIS ONE GRAFT TO OCCLUDE AND WHAT WAS DONE IN TREATMENT. AIDEN A PICTURE FOR PATIENT AND . TOLD THE PATIENT HE COULD HAVE PAIN MEDICATION AND REASSURED HIM AND HIS .
--- NOTE | 2018-06-13 11:30 | NUR ---
DR. LONG HERE. TALKED TO PATIENT AND ABOUT PLAN OF CARE AND NEW MEDICATION. DISCHARGE ORDERS REC'D.
--- NOTE | 2018-06-13 12:45 | NUR ---
Umu TROY REVIEWED ALL MEDS AND DISCHARGE INSTRUCTIONS WITH PATIENT AND .
--- NOTE | 2018-06-13 13:15 | NUR ---
DISCHARGED HOME WITH . ESCORTED TO VEHICLE VIA WHEELCHAIR.
--- NOTE | 2018-06-13 13:52 | NUR ---
1145: IVETTE REMOVED FROM R LEG.
--- NOTE | 2018-06-13 16:14 | NUR ---
1600: HAD REC'D CALL FROM POSTAL MAIL CARRIER AFTER PATIENT'S DICHARGE THAT HE HAD CALLED AND SAID THAT HIS PHARMACY WOULD FILL HIS SCRIPT FOR PLAVIX BECAUSE ALL HIS INFORMATION WASN'T FILLED OUT. AFTER NUMEROUS ATTEMPTS TO PATIENT'S PHONE ([phone]) AND 'S PHONE ([phone]) MR. SÁNCHEZ ANSWERED AND I TALKED TO HIM REGARDING HIS PRESCRIPTION AND I CALLED PLAVIX 75MG ONE TAB DAILY FOR 30 DAYS WITH NO REFILLS TO HIS PHARMACY AT [facility] ([phone]).
--- NOTE | 2018-06-15 15:01 | OP ---
PATIENT NAME: LATASHA SÁNCHEZ MEDICAL RECORD: [id number] :50 LOCATION:D.CAT ADMISSION DATE: SURGEON: RODERICK MORA MD DATE OF OPERATION: 06/12/2018 PROCEDURE: Left heart catheterization, selective coronary angiography, right femoral artery approach. CATHETERS: A 5-Brazilian sheath, 5/4 left and right Jimbo, 5/4 pig. The procedure was well tolerated. The patient returned to ICU. Sheath was removed. ExoSeal device. Left ventriculography not performed. CORONARY ANATOMY: LEFT MAIN: The left main gives rise to LAD. LAD can be seen filling competitive flow. CIRCUMFLEX: The circumflex has a large OM that has been grafted. RIGHT CORONARY ARTERY: Totally occluded at the tie end of the anastomotic site of the saphenous graft. Saphenous vein graft to the right fills to the tie end at the right coronary then is totally occluded. Saphenous vein graft to circumflex widely patent, filling the LAD that is widely patent. PLAN: Intervention of the saphenous vein graft to [place] right monentarily. At this point in time we expect long-term patency of bypass graft that is suboptimal. DESCRIPTION: Using indwelling 7-Brazilian sheath, hockey stick guide catheter provided good guide catheter support, followed by a 300 cm Whisper wire was placed across the totally occluded right down this portion of vessel. We used initial balloon inflations with a 3.0 x 15 mm [place]. Next, stents were placed in the following fashion, a distally a 3.0 x 15 and then more proximally 3.5 x 15 mm and both Integrity cqa-pabq-oytwved stents. Following the mid portion of the original stenosis was addressed with a 3.5 x 24 mm Integrity lza-yckm-ydcthmg stent. There was nice opening of the PD with a flow from SMOOTH 0-3, the PL itself has still sluggish flow distally, marked improvement in ST segments. She had Plavix loaded in the lab. Integrilin was used in the case. Sheath was closed with the ExoSeal device. TRANSINT:[id number] Voice Confirmation ID: [id number] DOCUMENT ID: [id number] RODERICK MORA MD at 1501 CC: [id number] DICTATION DATE: 06/12/181999 TALENT SOURCER: 06/13/18 0527 DEP CLI 06/13/18 [facility] [address] [place] [address]
--- NOTE | 2018-06-15 15:01 | HP ---
PATIENT: LATASHA SÁNCHEZ MEDICAL RECORD: [id number] ACCOUNT: [id number] LOCATION:TOM : 50 ADMISSION DATE: 06/12/18 PCP: No PCP HISTORY AND PHYSICAL EXAMINATION HISTORY OF PRESENT ILLNESS: A 67-year-old gentleman status post recent coronary bypass grafting, CURRY to LAD, saphenous vein graft to OM, saphenous vein graft to the right. 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 PHYSICAL EXAMINATION: GENERAL: Somewhat irregular ill-appearing gentleman in no acute distress. HEENT: Normocephalic, atraumatic. NECK: No JVD or bruit. HEART: Regular. LUNGS: Dennis clear. ABDOMEN: Soft, nontender. EXTREMITIES: Pulse 2+ and equal. No edema. IMPRESSION: Suspect acute graft failure. PLAN: For angiography, intervention based on above. TRANSINT:[id number] Voice Confirmation ID: [id number] DOCUMENT ID: [id number] RODERICK MORA MD at 1501 CC: [id number] DICTATION DATE: 06/12/18 185 GLASS LAMINATING OPERATOR: 06/12/182119 DEP CLI 06/13/18 [place] [address] [place] [address]
== END 2018-06-13 13:15 | disposition home or self-care (01) ==
LOC: D.CATH 17:54 → D.ER 17:54 → D.CATH 18:45 → EDSTATUS 19:00 → D.CVICU 19:55 → D.CATH 06-13 13:15
PROVIDERS: Emergency Medicine
DX: I97.190 Other postprocedural cardiac functional disturbances following cardiac surgery (principal); I21.A9 Other myocardial infarction type; I25.119 Atherosclerotic heart disease of native coronary artery with unspecified angina pectoris; T82.218A Other mechanical complication of coronary artery bypass graft, initial encounter; Y83.8 Other surgical procedures as the cause of abnormal reaction of the patient, or of later complication, without mention of misadventure at the time of the procedure

== ENCOUNTER → 2018-07-07 10:46 | Outpatient (CLI) | payer MEDICARE ==
[2018-06-12 20:32] VITALS: BMI 24.5
[2018-07-07 11:44] LABS: HEMATOCRIT 42.3 % (42.0-54.0); HEMOGLOBIN 14.4 g/dL (13.5-17.5); MCH 33.6 pg (26.0-34.0); MCV 98.8 fL (80.0-100.0); MEAN PLATELET VOLUME 9.7 fL (7.4-10.4); RBC 4.28 10x6/uL (4.20-6.10); RDW 14.4 % (11.5-14.5); WBC 6.5 10x3/uL (4.8-10.8)
[2018-07-07 11:58] LABS: ALBUMIN 3.3 g/dL (3.4-5.0); ALKALINE PHOSPHATASE 96 U/L (46-116); ALT (SGPT) 23 U/L (10-68); BILIRUBIN - TOTAL 0.44 mg/dL (0.2-1.3); CALC OSMOLALITY 276 mosm/kg (275-300); CALCIUM 8.6 mg/dL (8.5-10.1); CARBON DIOXIDE 23.2 mmol/L (21.0-32.0); CHLORIDE - SERUM 104 mmol/L (98-107); CREATININE - SERUM 0.7 mg/dL (0.6-1.3); GLUCOSE 91 mg/dL (74-106); POTASSIUM - SERUM 4.2 mmol/L (3.5-5.1); SODIUM 140 mmol/L (136-145); UREA NITROGEN 8 mg/dL (7-18); eGFR NON AFRICAN AMERICAN > 90 mL/min (90-120)
== END | disposition home or self-care (01) ==
LOC: D.RAD 10:15
PROVIDERS: Thoracic Surgery (Cardiothoracic Vascular Surgery)
DX: D64.9 Anemia, unspecified (principal); J91.8 Pleural effusion in other conditions classified elsewhere